=== PATIENT | female | born 1935 | race Caucasian/White ===

== ENCOUNTER 2018-01-15 19:25 | Inpatient (IN) | payer OTHER ==
[~2018-01-15] VITALS: Ht 157.5 cm; Wt 101.5 kg
[~2018-01-15 19:25] MED LIST: "\\\"WATER PILL\\\"" PO; ACET325 PO; FOSI10 PO; FURO40 PO; GABA300 PO; HYDR1TAB94 PO; Keflex500 MG PO; LIDO2TG30 TOP; Mobic15 MG PO; Norco 5-325 Ta1 EACH PO; SULTRIDS PO; Synthroid100 MCG PO
[2018-01-15 20:29] LABS: BASOPHILS ABSOLUTE AUTO 0.06 K/mm3 (0.00-0.23); BASOPHILS PERCENT AUTO 0 % (0-2); EOSINOPHILS ABSOLUTE AUTO 0.09 K/mm3 (0.00-0.68); EOSINOPHILS PERCENT AUTO 1 % (0-6); Hematocrit 41.9 % (33.0-51.0); Hemoglobin 13.9 g/dL (11.5-16.0); IMMATURE GRAN ABSOLUTE AUTO 0.08 K/mm3 (0.00-0.10); IMMATURE GRAN PERCENT AUTO 1 % (0-1); LYMPHOCYTES ABSOLUTE AUTO 1.02 K/mm3 (0.84-5.20); LYMPHOCYTES PERCENT AUTO 6 % (21-46); MONOCYTES PERCENT AUTO 6 % (4-13); Mean Corpuscular HGB 31.1 pg (26.0-34.0); Mean Corpuscular HGB Conc 33.2 g/dL (31.5-36.5); Mean Corpuscular Volume 94 fL (80-100); Mean Platelet Volume 10.6 fL (9.1-12.4); NEUTROPHILS ABSOLUTE AUTO 13.85 K/mm3 (1.96-9.15); NEUTROPHILS PERCENT AUTO 86 % (41-73); Platelet Count 283 K/mm3 (150-400); RDW Coefficient Variation 12.7 % (11.7-14.2); RDW Standard Deviation 43.8 fL (35.1-46.3); Red Blood Cell Count 4.47 M/mm3 (3.80-5.20)
[2018-01-15 20:45] LABS: Albumin, Blood 3.5 g/dL (3.4-5.0); Albumin/Globulin Ratio 0.9 (0.8-1.8); Bilirubin, Total 0.4 mg/dL (0.1-1.0); Bun/Creatinine Ratio 18.2 (12.0-20.0); Calcium, Blood 9.2 mg/dL (8.5-10.1); Creatinine, Blood 1.81 mg/dL (0.40-1.00); Potassium, Blood 3.6 mmol/L (3.5-5.5); Total Protein, Blood 7.5 g/dL (6.4-8.2)
[2018-01-17 04:57] LABS: BASOPHILS ABSOLUTE AUTO 0.04 K/mm3 (0.00-0.23); BASOPHILS PERCENT AUTO 1 % (0-2); EOSINOPHILS ABSOLUTE AUTO 0.44 K/mm3 (0.00-0.68); EOSINOPHILS PERCENT AUTO 5 % (0-6); Hematocrit 35.4 % (33.0-51.0); Hemoglobin 11.5 g/dL (11.5-16.0); IMMATURE GRAN ABSOLUTE AUTO 0.04 K/mm3 (0.00-0.10); IMMATURE GRAN PERCENT AUTO 1 % (0-1); LYMPHOCYTES ABSOLUTE AUTO 0.88 K/mm3 (0.84-5.20); LYMPHOCYTES PERCENT AUTO 11 % (21-46); MONOCYTES ABSOLUTE AUTO 0.89 K/mm3 (0.16-1.47); MONOCYTES PERCENT AUTO 11 % (4-13); Mean Corpuscular HGB 31.1 pg (26.0-34.0); Mean Corpuscular HGB Conc 32.5 g/dL (31.5-36.5); Mean Corpuscular Volume 96 fL (80-100); Mean Platelet Volume 10.8 fL (9.1-12.4); NEUTROPHILS ABSOLUTE AUTO 5.89 K/mm3 (1.96-9.15); NEUTROPHILS PERCENT AUTO 72 % (41-73); Platelet Count 227 K/mm3 (150-400); RDW Standard Deviation 45.4 fL (35.1-46.3); White Blood Cell Count 8.18 K/mm3 (4.00-11.30)
[2018-01-17 05:18] LABS: Anion Gap 9 mmol/L (6-16); Blood Urea Nitrogen 26 mg/dL (8-24); CO2, Blood 23 mmol/L (21-32); Calcium, Blood 8.1 mg/dL (8.5-10.1); Chloride, Blood 112 mmol/L (98-108); Creatinine, Blood 1.53 mg/dL (0.40-1.00); Glomerular Filtration Rate 35 (60-); Glucose, Blood 108 mg/dL (70-99); Potassium, Blood 3.9 mmol/L (3.5-5.5); Sodium, Blood 144 mmol/L (136-145); Vancomycin, Random 22.5 ug/mL
[2018-01-17 13:39] LABS: Vancomycin, Random 17.9 ug/mL
[2018-01-18 05:03] LABS: BASOPHILS ABSOLUTE AUTO 0.04 K/mm3 (0.00-0.23); BASOPHILS PERCENT AUTO 1 % (0-2); EOSINOPHILS ABSOLUTE AUTO 0.43 K/mm3 (0.00-0.68); EOSINOPHILS PERCENT AUTO 5 % (0-6); Hematocrit 37.7 % (33.0-51.0); Hemoglobin 12.4 g/dL (11.5-16.0); IMMATURE GRAN ABSOLUTE AUTO 0.04 K/mm3 (0.00-0.10); IMMATURE GRAN PERCENT AUTO 1 % (0-1); LYMPHOCYTES ABSOLUTE AUTO 0.88 K/mm3 (0.84-5.20); LYMPHOCYTES PERCENT AUTO 11 % (21-46); MONOCYTES ABSOLUTE AUTO 0.73 K/mm3 (0.16-1.47); MONOCYTES PERCENT AUTO 9 % (4-13); Mean Corpuscular HGB 31.1 pg (26.0-34.0); Mean Corpuscular HGB Conc 32.9 g/dL (31.5-36.5); Mean Corpuscular Volume 95 fL (80-100); Mean Platelet Volume 10.8 fL (9.1-12.4); NEUTROPHILS ABSOLUTE AUTO 6.21 K/mm3 (1.96-9.15); NEUTROPHILS PERCENT AUTO 74 % (41-73); Platelet Count 268 K/mm3 (150-400); RDW Coefficient Variation 12.6 % (11.7-14.2); RDW Standard Deviation 43.8 fL (35.1-46.3); Red Blood Cell Count 3.99 M/mm3 (3.80-5.20); White Blood Cell Count 8.33 K/mm3 (4.00-11.30)
[2018-01-18 05:28] LABS: Albumin, Blood 2.7 g/dL (3.4-5.0); Anion Gap 8 mmol/L (6-16); Blood Urea Nitrogen 21 mg/dL (8-24); Bun/Creatinine Ratio 14.7 (12.0-20.0); CO2, Blood 27 mmol/L (21-32); Calcium, Blood 8.6 mg/dL (8.5-10.1); Chloride, Blood 108 mmol/L (98-108); Creatinine, Blood 1.43 mg/dL (0.40-1.00); Glomerular Filtration Rate 38 (60-); Glucose, Blood 111 mg/dL (70-99); Potassium, Blood 4.1 mmol/L (3.5-5.5); Sodium, Blood 143 mmol/L (136-145); Uric Acid, Blood 6.9 mg/dL (2.6-6.0); Vancomycin, Random 20.5 ug/mL
[2018-01-19 06:28] LABS: Anion Gap 9 mmol/L (6-16); Blood Urea Nitrogen 14 mg/dL (8-24); Bun/Creatinine Ratio 10.6 (12.0-20.0); CO2, Blood 28 mmol/L (21-32); Calcium, Blood 8.9 mg/dL (8.5-10.1); Chloride, Blood 103 mmol/L (98-108); Creatinine, Blood 1.32 mg/dL (0.40-1.00); Glomerular Filtration Rate 41 (60-); Glucose, Blood 109 mg/dL (70-99); Phosphorus, Blood 2.6 mg/dL (2.5-4.9); Potassium, Blood 3.5 mmol/L (3.5-5.5); Sodium, Blood 140 mmol/L (136-145)
[2018-01-19] MEDS ORDERED: AMLO10 PO (09:28)
[2018-01-19] MEDS ORDERED: SPIR25 PO (09:28)
[2018-01-19] MEDS ORDERED: Augmentin 875-1 EACH PO (09:28)
== END 2018-01-19 10:42 | disposition home or self-care (01) | DRG 872 ==
LOC: ER 19:25 → PCU 19:26 → EDBEDREQ 23:05 → PCU 23:24 → MEDS 01-16 15:27
PROVIDERS: Emergency Medicine; Family Medicine; Pharmacist
DX: A41.50 Gram-negative sepsis, unspecified (principal); A28.0 Pasteurellosis; L03.116 Cellulitis of left lower limb; N17.9 Acute kidney failure, unspecified; R65.20 Severe sepsis without septic shock; W55.03XA Scratched by cat, initial encounter; E03.9 Hypothyroidism, unspecified; I89.0 Lymphedema, not elsewhere classified; M16.0 Bilateral primary osteoarthritis of hip; M17.0 Bilateral primary osteoarthritis of knee; Z86.14 Personal history of Methicillin resistant Staphylococcus aureus infection; G62.9 Polyneuropathy, unspecified; E66.09 Other obesity due to excess calories; I80.02 Phlebitis and thrombophlebitis of superficial vessels of left lower extremity; I12.9 Hypertensive chronic kidney disease with stage 1 through stage 4 chronic kidney disease, or unspecified chronic kidney disease; N18.9 Chronic kidney disease, unspecified; Y92.9 Unspecified place or not applicable
CPT/HCPCS: 36415; 76770; 80048; 80053; 80069; 80202; 83605; 84550; 85025; 87040; 87070; 87075; 87077; 87205; 93005; 93010; 93971; 96361; 96374; 96375; 99285; G0378; J0360; J1650; J1940; J2543; J3370; J7030; J7042; J7050

== ENCOUNTER 2018-10-15 05:46 | Day surgery (SDC) | payer OTHER ==
[~2018-10-15] VITALS: Ht 152.4 cm; Wt 99.3 kg
[~2018-10-15 05:46] MED LIST changes: +AMLO10 PO; +Augmentin 875-1 EACH PO; +CLON.1 PO; +Flurbiprofen100 MG PO; +LEVSOD150 PO; +Probenecid-Col1 EACH PO; +SPIR25 PO
[2018-10-15] MEDS ORDERED: OXYC5 PO (07:06)
--- NOTE | 2018-10-15 07:59 | NUR ---
PT SURGERY CANCELLED DUE TO PRIMARILY HEALED CAT BITE TO R CALF AND SWELLING IN LEGS. PT STOPPED SPIROLATONE 2-3 DAYS AGO REPORTS DIFFICULTY GETTING TO BR. PT VERY PAINFUL GENERALLY. PATEINT TO FOLLOW UP WITH DR. RAMIREZ FOR CONTINUATION OF CARE AT LATER DATE. AWARE PT RECEIVED ORDERED OXICONTIN AND TYLENOL.
== END 2018-10-15 22:40 | disposition home or self-care (01) ==
LOC: ORSCMMR 05:46 → ORD 07:30 → ORSCMMR 22:40
DX: M17.11 Unilateral primary osteoarthritis, right knee (principal); Z53.9 Procedure and treatment not carried out, unspecified reason
CPT/HCPCS: 87081; J0171; J0330; J0690; J0735; J1885; J2250; J2795; J3010; J7120

== ENCOUNTER 2019-02-15 09:35 | Day surgery (SDC) | payer OTHER ==
[~2019-02-15] VITALS: Ht 157.5 cm; Wt 113.0 kg
[~2019-02-15 09:35] MED LIST changes: +OXYC5 PO
--- NOTE | 2019-02-15 10:40 | NUR ---
PT IN PAIN OF 10/10 CRIES WHEN SOCKS ARE APPLIED. Very sensitive to touch. Right knee in pain, pt has high anxiety. Blood pressure high medicated with home meds when pt arrived. Pt did not taked b/p meds today. Daughter Priya Marcelino care provider taking care of pt's spouse as well.
--- NOTE | 2019-02-15 11:19 | NUR ---
Pt medicated with rx for pain and anxiety. The patients pain came down to 5/10. Report given to Varun Garcia RN pt to construction or leak gang laborer.
--- NOTE | 2019-02-15 13:20 | NUR ---
PT TO RECOVERY POST PROCEDURE. PT IS DROWSY, ROUSABLE; ASKING QUESTIONS. PT REPORTS R KNEE DISCOMFORT, WHICH WAS PRESENT PRIOR TO PROCEDURE. MONITOR 90'S, B/P 147/70, SPO2 100 % 2L NC. R GROIN NO REDNESS/SWELLING AT SITE, DRSG C,D,I, BLE + 2 PULSES X 4.
--- NOTE | 2019-02-15 14:30 | NUR ---
ASSUMED CARE OF PT AT THIS TIME. NADN. VSS. PT SLEEPING, AROUSES WITH VERBAL STIMULI. L GROIN SITE REMAINS CLEAR. NO BLEEDING OR HEMATOMA NOTED.
[2019-02-15] MEDS ORDERED: CLOP75 PO (14:59)
--- NOTE | 2019-02-15 15:30 | NUR ---
PT ASSISTED UP WITH 2 PERSON ASSIST. PT ASSISTED WITH CHANGING CLOTHES. TOLERATES WELL. L GROIN SITE REMAINS CLEAR. NO BLEEDING OR HEMATOMA NOTED. PT ASSISTED INTO WC. SPOKE WITH ZENIA WOOD, SHE IS ON HER WAY.
--- NOTE | 2019-02-15 16:11 | NUR ---
PT SITTING IN WC, REPORTS HER R KNEE CONTINUES TO "THROB" VSS. L GROIN SITE IS STABLE. AWAITING PT DAUGHTER FOR DC.
--- NOTE | 2019-02-15 16:25 | NUR ---
PT AND DAUGHTER VERBALIZES UNDERSTANDING WRITTEN AND VERBAL ORDERS. PT DC TO HOME VIA WC WITH ASSISTANCE FROM STAFF TO CAR.
[2019-04-30] MEDS ORDERED: SPIR25 PO (09:15)
== END 2019-02-15 16:32 | disposition home or self-care (01) ==
LOC: MHTC 09:35
PROC: 047M3Z1 Dilation of Right Popliteal Artery using Drug-Coated Balloon, Percutaneous Approach (ICD-10-PCS; principal; 2019-02-15)
PROC: 047K3Z1 Dilation of Right Femoral Artery using Drug-Coated Balloon, Percutaneous Approach (ICD-10-PCS; principal; 2019-02-15)
DX: I70.203 Unspecified atherosclerosis of native arteries of extremities, bilateral legs (principal); Z79.899 Other long term (current) drug therapy
CPT/HCPCS: 37224; 75625; 75716; 75774; 99152; 99153; A9270-GY; C1725; C1760; C1769; C1887; C1894; C2623; J0360; J1644; J2060; J2250; J3010; J7030; Q9967

== ENCOUNTER 2019-03-23 22:11 | Emergency (ER) | payer OTHER ==
[~2019-03-23] VITALS: Ht 157.5 cm; Wt 90.7 kg
[~2019-03-23 22:11] MED LIST changes: +CLOP75 PO
[2019-03-24 00:21] LABS: BASOPHILS ABSOLUTE AUTO 0.05 K/mm3 (0.00-0.23); BASOPHILS PERCENT AUTO 1 % (0-2); EOSINOPHILS ABSOLUTE AUTO 0.17 K/mm3 (0.00-0.68); EOSINOPHILS PERCENT AUTO 2 % (0-6); Hematocrit 46.1 % (33.0-51.0); Hemoglobin 15.5 g/dL (11.5-16.0); IMMATURE GRAN ABSOLUTE AUTO 0.06 K/mm3 (0.00-0.10); IMMATURE GRAN PERCENT AUTO 1 % (0-1); LYMPHOCYTES ABSOLUTE AUTO 1.16 K/mm3 (0.84-5.20); LYMPHOCYTES PERCENT AUTO 12 % (21-46); MONOCYTES PERCENT AUTO 13 % (4-13); Mean Corpuscular HGB 32.6 pg (26.0-34.0); Mean Corpuscular HGB Conc 33.6 g/dL (31.5-36.5); Mean Corpuscular Volume 97 fL (80-100); NEUTROPHILS ABSOLUTE AUTO 6.94 K/mm3 (1.96-9.15); NEUTROPHILS PERCENT AUTO 72 % (41-73); Platelet Count 284 K/mm3 (150-400); RDW Coefficient Variation 12.8 % (11.7-14.2); RDW Standard Deviation 46.1 fL (35.1-46.3); Red Blood Cell Count 4.76 M/mm3 (3.80-5.20); White Blood Cell Count 9.68 K/mm3 (4.00-11.30)
[2019-03-24 00:44] LABS: Alanine Aminotransfer (ALT/SGP 19 U/L (12-78); Albumin, Blood 3.2 g/dL (3.4-5.0); Albumin/Globulin Ratio 0.7 (0.8-1.8); Alk Phos 103 U/L (50-136); Anion Gap 8 mmol/L (6-16); Aspartate Aminotrans (AST/SGOT 21 U/L (12-37); Bilirubin, Total 1.1 mg/dL (0.1-1.0); Blood Urea Nitrogen 17 mg/dL (8-24); Bun/Creatinine Ratio 18.3 (12.0-20.0); CO2, Blood 25 mmol/L (21-32); Calcium, Blood 9.5 mg/dL (8.5-10.1); Chloride, Blood 102 mmol/L (98-108); Creatinine, Blood 0.93 mg/dL (0.40-1.00); Globulin, Blood 4.4 g/dL (2.2-4.0); Glomerular Filtration Rate >60 (60-); Glucose, Blood 90 mg/dL (70-99); Magnesium, Blood 2.3 mg/dL (1.6-2.4); Potassium, Blood 4.6 mmol/L (3.5-5.5); Sodium, Blood 135 mmol/L (136-145); Total Protein, Blood 7.6 g/dL (6.4-8.2); Troponin I <0.015 ng/mL (0.000-0.040)
[2019-04-30] MEDS ORDERED: SPIR25 PO (09:15)
== END 2019-03-24 04:02 | disposition home or self-care (01) ==
LOC: ER 22:11
PROVIDERS: Emergency Medicine
DX: R60.0 Localized edema (principal); R06.00 Dyspnea, unspecified; R11.2 Nausea with vomiting, unspecified; E03.9 Hypothyroidism, unspecified; I10 Essential (primary) hypertension; Z79.02 Long term (current) use of antithrombotics/antiplatelets; Z79.899 Other long term (current) drug therapy
CPT/HCPCS: 36415; 71045; 80053; 83735; 83880; 84145; 84484; 85025; 93005; 93010; 96374; 96375; 99284-25; A9270-GY; J1170; J2405

== ENCOUNTER 2019-05-13 10:07 | Inpatient (IN) | payer OTHER ==
[~2019-05-13] VITALS: Ht 160 cm; Wt 99.5 kg
--- NOTE | 2019-05-13 10:38 | NUR ---
INTO SDS VIA WHEEL CHAIR PATIENT UNABLE TO STAND ON SCALE FOR WEIGHT DUE TO PAIN. ASSISTED CHANGING AND GETTING ON BED WITH 2 STAFF PATIENT HURTING DURING PROCEDURE STATES ALOT OF PAIN ALL IN KNEE.
--- NOTE | 2019-05-13 14:19 | NUR ---
PT GONE TO CXR. CUSTOMER SUPPORT MANAGER SAYS THE ARE WORKING ON ADMITTING THE PATIENT.
--- NOTE | 2019-05-13 15:46 | NUR ---
PT TRANSFERED OUT TO SURGICAL FLOOR POST OP. ORIENTED TO SELF ONLY. PAIN APPEARS WELL CONTROLLED AGITATION DECREASED. INTERMITENT PERIODS OF CALLING OUT DECREASED FROM ARRIVAL TO PACU.
--- NOTE | 2019-05-13 16:04 | NUR ---
ARRIVAL ON UNIT PT ARRIVED ON UNIT VIA BED. PATIENT IS LAYING IN BED MOANING AND CALLING OUT. SAYS SHE IS SCARED. PATIENT IS ALERT TO SELF ONLY. REPEATEDLY ASKING WHERE SHE IS AT AND FOR A OSWALDO. LIGHTS ARE DIMMED AND DAUGHTER IS AT BEDSIDE. CAP REFILL GOOD IN SURGICAL LIMB BASELINE EDEMA NOTICED BILATERALLY. PULSES PRESENT IN BOTH EXTREMETIES. BED ALARM IS IN PLACE, CALL LIGHT IN REACH. CONTINUING TO MONITOR PATIENTS CONFUSION.
--- NOTE | 2019-05-13 16:33 | NUR ---
PT NOW ALERT TO PLACE AND SITUATION. ABLE TO STATE WHERE SHE IS AND WHY SHE IS HERE. NOT MOANING AND CRYING OUT MUCH. ANSWERING QUESTIONS APPROPRIATLY. ABLE TO SWALLOW TYLENOL FOR PAIN.
--- NOTE | 2019-05-13 16:42 | NUR ---
PT HAS BEEN CONFUSED SINCE ARRIVAL TO THE UNIT. SHE REQUIRES FREQUENT REORIENTATION AND IS QUITE FORGETFUL. HER DAUGHTER IS AT THE BEDSIDE AND REPORTS SHE IS FORGETFUL AT TIMES BUT DENIES CONFUSION AT HOME. PT DENIES PAIN BUT REPORTS FEELING ANXIOUS WHEN ASKED. ZOFRAN GIVEN FOR NAUSEA. PT IS TOLERATING ICE CHIPS. WILL CONTINUE TO MONITOR.
--- NOTE | 2019-05-13 17:49 | NUR ---
CONSULT SPOKE TO DR. RAMIREZ ABOUT PTS HYPERTENSION. ORDERS FOR MEDICAL CONSULT ENTERED. SPOKE TO HAYDEE SAN FOR CONSULT.
--- NOTE | 2019-05-13 18:09 | NUR ---
SHIFT SUMMARY PT S/P RIGHT TOTAL KNEE PATIENT ALERT AND ORIENTED X3 PLACE, PERSON, SITUATION, CANNOT RECALL TIME. PATIENT HAS BEEN MOANING WHILE SITTING IN BED ASKING WHERE SHE IS AND HOW SHE GOT HERE. ABLE TO ANSWER QUESTIONS APPROPRIATLY AND FOLLOW DIRECTIONS. MEDICATED FOR PAIN PER EMAR. CURRENTLY REPORTING A 7/10 MEDICATED WITH TORODOL. ABLE TO WIGGLE TOES. TOLERATING PO FOOD. MEDICATED FOR NAUSEA ONCE. VASQUEZ CATHETER STILL IN PLACE PATENT AND DRAINING.
--- NOTE | 2019-05-14 05:53 | NUR ---
SUMMARY: POD [address] RAMIREZ. VSS, HTN APPEARS RESOLVED, AFEBRILE, ROOM AIR. PT TOLERATING REG DIET AND PASSING MINIMAL GAS. PT APPEARS PLEASANTLY CONFUSED AT TIMES BUT REMAINSA&O X3-4 THIS SHIFT. PAIN WELL CONTROLLED WITH SCHEDULED TYLENOL AND TORDAL WITH 5MG ROXICODONE X2 THIS SHIFT. VASQUEZ CATHETER DC'D THIS MORNING. ANTICIPATE PT/OT, AWAIT PT VOID.
[2019-05-14 06:16] LABS: BASOPHILS ABSOLUTE AUTO 0.02 K/mm3 (0.00-0.23); BASOPHILS PERCENT AUTO 0 % (0-2); Bun/Creatinine Ratio 19.6 (12.0-20.0); Calcium, Blood 8.7 mg/dL (8.5-10.1); Creatinine, Blood 1.02 mg/dL (0.40-1.00); EOSINOPHILS PERCENT AUTO 0 % (0-6); Hematocrit 39.8 % (33.0-51.0); Hemoglobin 13.1 g/dL (11.5-16.0); IMMATURE GRAN ABSOLUTE AUTO 0.06 K/mm3 (0.00-0.10); IMMATURE GRAN PERCENT AUTO 0 % (0-1); LYMPHOCYTES ABSOLUTE AUTO 0.65 K/mm3 (0.84-5.20); LYMPHOCYTES PERCENT AUTO 4 % (21-46); MONOCYTES ABSOLUTE AUTO 0.87 K/mm3 (0.16-1.47); MONOCYTES PERCENT AUTO 5 % (4-13); Mean Corpuscular HGB Conc 32.9 g/dL (31.5-36.5); Mean Corpuscular Volume 94 fL (80-100); Mean Platelet Volume 11.7 fL (9.1-12.4); NEUTROPHILS ABSOLUTE AUTO 15.17 K/mm3 (1.96-9.15); NEUTROPHILS PERCENT AUTO 90 % (41-73); Platelet Count 242 K/mm3 (150-400); RDW Coefficient Variation 12.7 % (11.7-14.2); RDW Standard Deviation 43.8 fL (35.1-46.3); Red Blood Cell Count 4.22 M/mm3 (3.80-5.20); White Blood Cell Count 16.77 K/mm3 (4.00-11.30)
--- NOTE | 2019-05-14 10:22 | NUR ---
PT VERY ANXIOUS WITH MOVEMENT. DENIES MUCH PAIN UPON MOVING AND STATES THAT IT IS MOSTLY FEAR. SEEMS TO BE ANXIOUS WITH MOVEMENT. DIFFICULTY FOLLOWING INSTRUCTIONS WHILE MOVING R/T ANXIETY.
--- NOTE | 2019-05-14 16:09 | NUR ---
PT REPORTS SHE HAS NOT VOIDED SINCE HER CATHETER WAS REMOVED. BLADDER SCAN SHOWS 147ML IN HER BLADDER. DR. LAFLEUR NOTIFIED, WILL PUSH FLUIDS AND CONTINUE WITH DISCHARGE TO [facility]. WILL NOTIFY NURSE DURING REPORT THAT PT HAS NOT VOIDED SINCE VASQUEZ WAS REMOVED THIS AM. WILL CONTINUE TO MONITOR.
--- NOTE | 2019-05-14 16:25 | NUR ---
REPORT GIVEN TO RN AT [facility]. AWAITING TRANSPORT TO DIRECTOR OF QUALITY PATIENT. PATIENT CURRENTLY SITTING IN CHAIR. BELONGINGS PACKED UP.
--- NOTE | 2019-05-14 16:43 | NUR ---
DISCHARGE PT LEFT TO [facility]IA [facility]. SCRIPTS AND EXTRA BANDAGES SENT WITH TRANSPORT. BELONGINGS WITH PATIENT. PATIENT DENIES PAIN PRIOR TO DISCHARGE. CONFUSED ON WHERE SHE WAS GOING EVEN AFTER TELLING HER.
== END 2019-05-14 16:45 | DRG 470 ==
LOC: ORSCMMR 10:07 → ORD 11:30 → ORSCMMR 11:30 → SURS 15:31 → ORSCMMR 05-14 14:28 → SURS 05-14 16:45 → ORD 05-27 07:30
PROVIDERS: ADMIT Orthopaedic Surgery
PROC: 0SRC0J9 Replacement of Right Knee Joint with Synthetic Substitute, Cemented, Open Approach (ICD-10-PCS; principal; 2019-05-13 11:30)
DX: M17.11 Unilateral primary osteoarthritis, right knee (principal); E66.01 Morbid (severe) obesity due to excess calories; E03.9 Hypothyroidism, unspecified; N18.3 Chronic kidney disease, stage 3 (moderate); I12.9 Hypertensive chronic kidney disease with stage 1 through stage 4 chronic kidney disease, or unspecified chronic kidney disease; E78.5 Hyperlipidemia, unspecified; F41.9 Anxiety disorder, unspecified; Z68.38 Body mass index [BMI] 38.0-38.9, adult; Z86.14 Personal history of Methicillin resistant Staphylococcus aureus infection; Z79.02 Long term (current) use of antithrombotics/antiplatelets; Z79.899 Other long term (current) drug therapy
CPT/HCPCS: 36415; 73560-RT; 80048; 83735; 85025; 88300; 97110; 97116; 97162; 97530; C1713; C1776; J0171; J0360; J0690; J0735; J1100; J1885; J2060; J2250; J2405; J2704; J2795; J3010; J7120

== ENCOUNTER → 2019-07-05 | Outpatient (CLI) | payer OTHER ==
[2019-07-05 14:11] LABS: Bilirubin, Urine Neg (Neg); Blood, Urine 1+ (Neg); Glucose Qualitative, Urine Neg (Neg); Ketones, Urine Neg (Neg); Leukocyte Esterase, Urine 1+ (Neg); Nitrite, Urine Pos (Neg); Protein, Urine 1+ (Neg); Urobilinogen, Urine NORM (Normal)
[2019-07-05 14:27] LABS: Appearance, Urine Hazy (Clear); Color, Urine Yellow (P-Yellow)
[2019-07-05 14:28] LABS: Bacteria Many /hpf; Mucus Light (0-Heavy); Red Blood Cells, Urine 0-2 /hpf (0-2); Squamous Epithelial Cells Mod /hpf (Few)
== END | disposition home or self-care (01) ==
LOC: LAB SHORT 11:58 → OLS 11:58
PROVIDERS: Family Medicine
DX: N39.0 Urinary tract infection, site not specified (principal)
CPT/HCPCS: 81001; 87077; 87086; 87186

== ENCOUNTER 2020-04-02 20:56 | Inpatient (IN) | payer OTHER ==
[~2020-04-02] VITALS: Ht 160 cm; Wt 106.0 kg
[2020-04-02 21:55] LABS: BASOPHILS ABSOLUTE AUTO 0.08 K/mm3 (0.00-0.23); BASOPHILS PERCENT AUTO 1 % (0-2); EOSINOPHILS ABSOLUTE AUTO 0.34 K/mm3 (0.00-0.68); EOSINOPHILS PERCENT AUTO 2 % (0-6); Hematocrit 50.7 % (33.0-51.0); Hemoglobin 15.9 g/dL (11.5-16.0); IMMATURE GRAN ABSOLUTE AUTO 0.17 K/mm3 (0.00-0.10); IMMATURE GRAN PERCENT AUTO 1 % (0-1); LYMPHOCYTES ABSOLUTE AUTO 1.22 K/mm3 (0.84-5.20); LYMPHOCYTES PERCENT AUTO 8 % (21-46); MONOCYTES ABSOLUTE AUTO 0.94 K/mm3 (0.16-1.47); MONOCYTES PERCENT AUTO 6 % (4-13); Mean Corpuscular HGB 28.9 pg (26.0-34.0); Mean Corpuscular HGB Conc 31.4 g/dL (31.5-36.5); Mean Corpuscular Volume 92 fL (80-100); Mean Platelet Volume 10.6 fL (9.1-12.4); NEUTROPHILS ABSOLUTE AUTO 13.31 K/mm3 (1.96-9.15); NEUTROPHILS PERCENT AUTO 83 % (41-73); Platelet Count 276 K/mm3 (150-400); RDW Coefficient Variation 12.6 % (11.7-14.2); RDW Standard Deviation 42.9 fL (35.1-46.3); White Blood Cell Count 16.06 K/mm3 (4.00-11.30)
[2020-04-02 22:12] LABS: Albumin, Blood 3.5 g/dL (3.4-5.0); Albumin/Globulin Ratio 0.9 (0.8-1.8); Bilirubin, Total 0.4 mg/dL (0.1-1.0); Bun/Creatinine Ratio 22.1 (12.0-20.0); Calcium, Blood 8.6 mg/dL (8.5-10.1); Creatinine, Blood 1.36 mg/dL (0.40-1.00); Globulin, Blood 3.7 g/dL (2.2-4.0); Potassium, Blood 3.9 mmol/L (3.5-5.5); Total Protein, Blood 7.2 g/dL (6.4-8.2)
[2020-04-02] MEDS ORDERED: EFFEXOR XR37.5 MG PO (23:36)
[2020-04-03 00:17] LABS: Thyroid Stimulating Hormone 1.16 uIU/mL (0.360-4.800)
--- NOTE | 2020-04-03 05:16 | NUR ---
SHIFT SUMMARY NEW ADMIT THIS AM. CONFUSED/COOPERATIVE AT TIMES. NPO. RLE SHORTENED + EXTERNALLY ROTATED. PPP, DENIES N/T BLE, MOVES TOES WELL. DISCOMFORT DECREASED WITH 1 NORCO Q6H + X1 25mcg FENTANYL WITH MINIMAL AFFECT, NEW ORDERS FOR DILAUDID OBTAINED FOR FURTHER SEVERE PAIN CONTROL. PT INCONTINENT IN ATTENDS AT TIMES, REFUSING VASQUEZ PLACEMENT. PT VERY RELUCTANT + PAINFUL TO UTILIZE BED PATTERSON, WILL CONTINUE TO ENCOURAGE + EDUCATE. PT CURRENTLY RESTING IN BED WITH CALL LIGHT IN REACH.
[2020-04-03 07:12] LABS: BASOPHILS ABSOLUTE AUTO 0.04 K/mm3 (0.00-0.23); BASOPHILS PERCENT AUTO 0 % (0-2); EOSINOPHILS PERCENT AUTO 0 % (0-6); Hematocrit 52.9 % (33.0-51.0); Hemoglobin 16.3 g/dL (11.5-16.0); IMMATURE GRAN ABSOLUTE AUTO 0.08 K/mm3 (0.00-0.10); IMMATURE GRAN PERCENT AUTO 1 % (0-1); LYMPHOCYTES PERCENT AUTO 3 % (21-46); MONOCYTES ABSOLUTE AUTO 0.63 K/mm3 (0.16-1.47); MONOCYTES PERCENT AUTO 4 % (4-13); Mean Corpuscular HGB 29.2 pg (26.0-34.0); Mean Corpuscular HGB Conc 30.8 g/dL (31.5-36.5); Mean Corpuscular Volume 95 fL (80-100); Mean Platelet Volume 10.7 fL (9.1-12.4); NEUTROPHILS ABSOLUTE AUTO 14.42 K/mm3 (1.96-9.15); NEUTROPHILS PERCENT AUTO 92 % (41-73); Platelet Count 287 K/mm3 (150-400); RDW Coefficient Variation 12.8 % (11.7-14.2); RDW Standard Deviation 45.1 fL (35.1-46.3); Red Blood Cell Count 5.58 M/mm3 (3.80-5.20); White Blood Cell Count 15.67 K/mm3 (4.00-11.30)
[2020-04-03 07:28] LABS: Bun/Creatinine Ratio 22.5 (12.0-20.0); Calcium, Blood 8.3 mg/dL (8.5-10.1); Creatinine, Blood 1.2 mg/dL (0.40-1.00); Potassium, Blood 5.2 mmol/L (3.5-5.5)
[2020-04-03 13:26] LABS: Magnesium, Blood 2.4 mg/dL (1.6-2.4); Phosphorus, Blood 3.6 mg/dL (2.5-4.9)
--- NOTE | 2020-04-03 17:45 | NUR ---
SHIFT SUMMARY PATIENT TREATED FOR HR > 120 T/O SHIFT; DR DONAHUE CONTACTED SEVERAL TIMES RE SUCH AND ALSO FOR ONGOING C/O NAUSEA. NEW IV ACCESS REQUIRED THIS AFTERNOON; 18 GA PLACED WITH LENA MUNROE BY PCU ALTO SINGER. PATIENT NOW RESTING QUIETLY AFTER PHENERGAN IV AND DILAUDID ADMINISTERED. IVF INFUSING PER NEW ORDER. PATIENT UNABLE TO VOID TO BEDPAN R/T PAIN, ATTENDS IN PLACE. (PATIENT REFUSING FC PLACEMENT.) DAUGHTER IN TO SEE TODAY. PLAN FOR OC TO OR TOMORROW WITH DR RAMIREZ. CONT TO MONITOR.
--- NOTE | 2020-04-03 20:35 | NUR ---
DR RAMIREZ AT BEDSIDE.NOTING VS WITH INITIAL ASSESSMENT OF THIS PT, I NOTE IV SITE INFILTRATED.DC'D WITH CATH INTACT.NAIL BEDS DUSKY.HANDS COLD.RADIAL PULSES PRESENT BILAT.PT DENIES CP OR SOB. PER TELE HEART RATE HAS BEEN SUSTAINING 130-142 WITH LOWEST AT 1230 PM @112.WARM PACK TO IV INFILTRATE SITE.WARM BLANKETS ON PT AND TO PT HANDS.
--- NOTE | 2020-04-03 23:46 | NUR ---
NEW ORDER OBTAINED FOR CARDIAC MED IV. Boris DONAHUE MINERAL MIXER ICU AT BEDSIDE ATTEMPINT TO OBTAIN IV USING SITE RITE PT HAS NO IV ACCESS.
[2020-04-04 03:02] LABS: Source, Urine Catheter
--- NOTE | 2020-04-04 03:02 | NUR ---
PT ALLOWED VASQUEZ PLACED DUE TO PAIN WITH REPOSITIONING FOR ATTEND CHANGE. U/A SENT. TELE MONITOR GER NANCE NOTED HEART RATE 90-110 WITH DILTIAZEM DOSE.
[2020-04-04 03:17] LABS: Appearance, Urine Hazy (Clear); Bilirubin, Urine Neg (Neg); Blood, Urine 1+ (Neg); Color, Urine Yellow (P-Yellow); Glucose Qualitative, Urine Neg (Neg); Ketones, Urine 1+ (Neg); Leukocyte Esterase, Urine 2+ (Neg); Nitrite, Urine Neg (Neg); Protein, Urine 2+ (Neg); Specific Gravity, Urine 1.025 (1.003-1.022); Urobilinogen, Urine NORM (Normal)
[2020-04-04 03:18] LABS: Bacteria Few /hpf; Red Blood Cells, Urine 0-2 /hpf (0-2); Squamous Epithelial Cells Rare /hpf (Few); White Blood Cells, Urine TNTC /hpf (0-5)
--- NOTE | 2020-04-04 04:10 | NUR ---
I CALLED [facility] TO CHECK ON CURRENT HEART RATE AND WAS REPORTED PT RATE BACK UP TO 145.CALL OUT TO DR PORTER.
[2020-04-04 04:43] LABS: BASOPHILS ABSOLUTE AUTO 0.06 K/mm3 (0.00-0.23); BASOPHILS PERCENT AUTO 0 % (0-2); EOSINOPHILS ABSOLUTE AUTO 0.01 K/mm3 (0.00-0.68); EOSINOPHILS PERCENT AUTO 0 % (0-6); Hematocrit 50.4 % (33.0-51.0); Hemoglobin 15.9 g/dL (11.5-16.0); IMMATURE GRAN ABSOLUTE AUTO 0.11 K/mm3 (0.00-0.10); IMMATURE GRAN PERCENT AUTO 1 % (0-1); LYMPHOCYTES ABSOLUTE AUTO 0.84 K/mm3 (0.84-5.20); LYMPHOCYTES PERCENT AUTO 5 % (21-46); MONOCYTES ABSOLUTE AUTO 1.17 K/mm3 (0.16-1.47); MONOCYTES PERCENT AUTO 7 % (4-13); Mean Corpuscular HGB 29.2 pg (26.0-34.0); Mean Corpuscular HGB Conc 31.5 g/dL (31.5-36.5); Mean Corpuscular Volume 93 fL (80-100); Mean Platelet Volume 10.9 fL (9.1-12.4); NEUTROPHILS ABSOLUTE AUTO 13.52 K/mm3 (1.96-9.15); NEUTROPHILS PERCENT AUTO 86 % (41-73); Platelet Count 320 K/mm3 (150-400); RDW Coefficient Variation 13.1 % (11.7-14.2); RDW Standard Deviation 44.3 fL (35.1-46.3); Red Blood Cell Count 5.44 M/mm3 (3.80-5.20); White Blood Cell Count 15.71 K/mm3 (4.00-11.30)
--- NOTE | 2020-04-04 04:51 | NUR ---
CXR COMPLETED. NO RETURN CALL PER DR PORTER YET.I SPOKE WITH ER STAFF AND HE IS CURRENTLY IN THE ER. THEY WILL ASK HIM TO CALL OUR UNIT.
[2020-04-04 05:02] LABS: Bun/Creatinine Ratio 20.4 (12.0-20.0); Calcium, Blood 8.6 mg/dL (8.5-10.1); Creatinine, Blood 1.67 mg/dL (0.40-1.00); Potassium, Blood 4.9 mmol/L (3.5-5.5)
--- NOTE | 2020-04-04 05:57 | NUR ---
SUMMARY HAVE NOT GOTTEN CXR REPORT BACK WITH CONFIRMATION OF CL, WILL START IV FLUIDS WHEN RECEIVED. POTASSIUM WAS PREVIOUSLY HIGHER END OF NORMAL,SO WHEN REPORT BACK, MAY ASK FOR CHANGE OF IV FLUIDS. PT CONTINUES CONFUSED. REPEATEDLY ASKS FOR FLUIDS PO AND IS ADVISED NPO FOR POSSIBLE O.R. TODAY. PT REFUSES OFFERS OF SWABS. MED WITH DILAUDED FOR PAIN AND GAVE ADDITIONAL DOSE OF DILTIAZEM PER ORDERS WITH RESULTING RATE 109.NOTED HIGH DIASTOLIC AGAIN. WILL CONT TO MONITOR.PT ON O2 WITH NO C/O SOB OR CP.
--- NOTE | 2020-04-04 11:20 | NUR ---
ELEVATED HR PT'S HR REMAINS >110 EVEN AFTER IV AND PO LOPRESSOR. HR RESPONDED TO IV LOPRESSOR AND DROPPED FROM [address] DONAHUE, DR. RAMIREZ AND DR. FERNÁNDEZ ARE AWARE. AT THIS TIME PT'S SURGERY HAS AGAIN BEEN DELAYED UNTIL TOMORROW. DR. DONAHUE IS INCREASING PO METOPROLOL TO EVERY 6 HOURS AND INCREASING DOSE TO 50 MG. PT DENIES CHEST PAIN OR SHORTNESS OF BREATH WITH ELEVATED HR. RHYTHM REMAINS AFIB AT THIS TIME. PT'S DAUGHTER HAS BEEN NOTIFIED OF DELAYED PROCEDURE. DR. DONAHUE DID NOT FEEL IT WOULD BE APPROPRIATE TO PLACE PT ON A DRIP TO MANAGE HER HR AT THIS TIME. WILL CONTINUE TO MONITOR.
--- NOTE | 2020-04-04 19:21 | NUR ---
SHIFT SUMMARY PT IS AWAITING SURGERY TO HAVE HER R HIP REPAIRED. SHE HAS BEEN UNABLE TO GO TO SURGERY R/T ELEVATED HR. SHE HAS BEEN STARTED ON PO CARDIZEM WHICH APPEARS TO BE MOST EFFECTIVE TO LOWER THE HR. PT NEEDS TO HAVE HR <100 BEFORE SHE CAN GO TO SURGERY. PT HAS BEEN PAINFUL EVEN WHEN PROVIDED PAIN MEDICATION AND YELLS OUT WITH REPOSITIONING. PT HAS ALLOWED STAFF TO DO MINIMAL REPOSITIONING DESPITE EDUCATION THAT SHE COULD DEVELOP A PRESSURE INJURY. REPORT GIVEN TO ALFA NANCE.
--- NOTE | 2020-04-04 23:49 | NUR ---
PT HAS BEEN REFUSING REPOSITIONING AND C/O SEVERE BUTTOCK PAIN TO THE POINT OF REQUIRING DILAUDID 0.5MG X 2 DOSES IN SHORT SUCCESSION AND NORCO 10 MG DOSE.CURRENTLY MONITORING PULSE OXIMETRY PER NIBP AND REMAINS 94-97% ON 2 L N/C.I ORDERED CONT PULSE OX PER PROTOCOL FOR HIGH RISK PAIN MANAGEMENT. DISCUSSED RISKS WITH PT AND REPOSITIONED PER 4 STAFF WITH MAX ASSIST AND PT ACTUALLY HINDERING UNINTENTIONALLY BY PUSHING AGAINST RAIL INSTEAD OF PULLING TOWARD RAIL. PT FEARFUL AND REASSURED.PT HAD DAMP WASH CLOTH UNDER BUTTOCK AND GIBBS WAS ALSO DAMP ALTHOUGH PT HAS VASQUEZ. APPEARED POSSIBLY A DRINK SPILLED IN BED.GIBBS WAS WRINKLED UNDER PT AND L BUTTOCK RED,SLIGHTLY FIRM WITH SKIN INTACT.REPLACED GIBBS WITH NEW AND REMOVED MOISTURE FROM SKIN. PLACED COCCYX MEPILEX AND 2 OTHER MEPILEX PROTECTIVE TO L BUTTOCK.AGAIN DISCUSSED RISKS WITH PT AND REPOSITIONED AFTER TO R SIDE.AFTER, PT REPORTING BUTTOCK PAIN IMPROVED.
--- NOTE | 2020-04-05 00:16 | NUR ---
PTS HEART RATE CONTINUES 110-120 EVEN AFTER SETTLING OF POSITION. CALL OUT TO DR BYRD.WAITING RETURN CALL.
--- NOTE | 2020-04-05 00:51 | NUR ---
SPOKE WITH DR PORTER AND RECEIVED ORDERS.
--- NOTE | 2020-04-05 03:22 | NUR ---
SUMMARY PT RECEIVED FIRST DOSE LANOXIN IV AND LOPRESSOR 25 MG PO WITH HEART RATE CONTINUING AT 110.NO OTHER CHANGES. DR PORTER NOTIFIED PT WITH DECRESED URINARY OUTPUT ,CKD BUT SATISF MAP.STILL PENDING POSSIBLE OR TODAY IF HEAR RATE MAINTAINS BELOW 100.
[2020-04-05 04:47] LABS: Bun/Creatinine Ratio 24.1 (12.0-20.0); Calcium, Blood 7.7 mg/dL (8.5-10.1); Creatinine, Blood 1.74 mg/dL (0.40-1.00); Potassium, Blood 4.7 mmol/L (3.5-5.5)
--- NOTE | 2020-04-05 05:46 | NUR ---
TRANSFER SPOKE WITH DR PORTER AND RECEIVED ORDER FOR TRANSFER TO PCU WITH JEREMY ELENA.DISCUSSED WITH PT REASON FOR TRANFER. CIRC CKS UNCHANGED. CONT COOL EXT R FEMORAL PULSE PALPATED.R PEDAL CONFIRMED PER DOPPLER TONIGHT WITH EDEMA DIFF TO ASSESS FULLY. PT WIGGLES TOES. DENIES CP OR SOB. CONT AFIB UNCONTROLLED RATE AND HTN.TRANSFERRED PER BED TO PCU 2 WITH REPORT GIVEN TO DEEDEE NANCE.
--- NOTE | 2020-04-05 06:19 | NUR ---
TRANSFER NOTE PATIENT TRANSFERED TO PCU 2 FROM SURGICAL FLOOR. PATIENT VERY ANXIOUS AND PARANOID UPON TRANSFER. WHILE STAFF WAS SETTELING PATIENT IN NEW ROOM SHE STATED, "WHY ARE THERE SO MANY PEOPLE HERE, AM I GOING TO ?" PATIENT PROVIDED WITH APPROPRIATE REASURANCE AND WAS ORIENTED TO THE NEW ROOM, UNIT, CALL LIGHT, AND PLAN OF CARE. IV CARDIZEM RUNNING PER EMAR. VITAL SIGNS CHARTED. PATIENT CURRENTLY RESTING IN BED WATCHING TV, CALL LIGHT IN REACH. WILL CONTINUE TO MONITOR PATIENT AND REPORT TO ONCOMING RN.
--- NOTE | 2020-04-05 06:25 | NUR ---
UPDATE CALLED DR PORTER TO VERIFY THAT THE IV DIGOXIN SHOULD STILL BE GIVEN. DR PORTER STATED TO GO AHEAD AND GIVE IT ORDERED.
--- NOTE | 2020-04-05 06:27 | NUR ---
PER PT REQUEST CALLED DAUGHTER ISRAEL AND ADVISED OF TRANSFER.
--- NOTE | 2020-04-05 17:59 | NUR ---
SHIFT SUMMARY PT A&Ox3 WITH INTERMITTIENT CONFUSION; ANXIOUS BUT COOPERATIVE WITH CARE. PT REPORTS PAIN TO RLE WITH MOVEMENT, MEDIATED PER EMAR. PT DENIES CHEST PAIN, SOB, NAUSEA AND DIZZINESS. CARDIZEM GTT OFF THIS AM; PO CARDIZEM; PER TELE HR AVERAGING 80'S. FEMUR XRAY COMPLETED DURING SHIFT. VSS. NO OTHER ACUTE CHANGES NOTED DUIRNG SHIFT.
[2020-04-06 03:40] LABS: BASOPHILS ABSOLUTE AUTO 0.06 K/mm3 (0.00-0.23); BASOPHILS PERCENT AUTO 1 % (0-2); EOSINOPHILS ABSOLUTE AUTO 0.44 K/mm3 (0.00-0.68); EOSINOPHILS PERCENT AUTO 4 % (0-6); Hematocrit 42.3 % (33.0-51.0); Hemoglobin 13.3 g/dL (11.5-16.0); IMMATURE GRAN ABSOLUTE AUTO 0.04 K/mm3 (0.00-0.10); IMMATURE GRAN PERCENT AUTO 0 % (0-1); LYMPHOCYTES ABSOLUTE AUTO 1.44 K/mm3 (0.84-5.20); LYMPHOCYTES PERCENT AUTO 13 % (21-46); MONOCYTES ABSOLUTE AUTO 0.97 K/mm3 (0.16-1.47); MONOCYTES PERCENT AUTO 8 % (4-13); Mean Corpuscular HGB 29.6 pg (26.0-34.0); Mean Corpuscular HGB Conc 31.4 g/dL (31.5-36.5); Mean Corpuscular Volume 94 fL (80-100); Mean Platelet Volume 11.1 fL (9.1-12.4); NEUTROPHILS ABSOLUTE AUTO 8.53 K/mm3 (1.96-9.15); NEUTROPHILS PERCENT AUTO 75 % (41-73); Platelet Count 230 K/mm3 (150-400); RDW Coefficient Variation 12.8 % (11.7-14.2); RDW Standard Deviation 44.1 fL (35.1-46.3); Red Blood Cell Count 4.49 M/mm3 (3.80-5.20); White Blood Cell Count 11.48 K/mm3 (4.00-11.30)
[2020-04-06 04:00] LABS: Bun/Creatinine Ratio 24.3 (12.0-20.0); Calcium, Blood 7.5 mg/dL (8.5-10.1); Creatinine, Blood 1.4 mg/dL (0.40-1.00); Potassium, Blood 4.4 mmol/L (3.5-5.5)
--- NOTE | 2020-04-06 06:28 | NUR ---
SHIFT SUMMARY PATIENT PLEASENT THROUGHOUT THE NIGHT. PATIENT FORGETFUL BUT EASIY REORIENTED. PATIENT REPORTS HER PAIN IS FINE UNLESS SHE IS MOVED IN ANY WAY OR COUGHS, PATIENT REFUSED MOST TURNS DUE TO IT BEING TOO PAINFUL. PATIENT APPEARED TO SLEEP WELL THROUGHOUT MOST OF THE NIGHT. VITAL SIGNS CHARTED. PATIENT CURRENTLY APPEARS TO BE SLEEPING. WILL CONTINUE TO MONITOR PATIENT AND REPORT TO ONCOMING RN.
--- NOTE | 2020-04-06 18:04 | NUR ---
SHIFT SUMMARY; A/A/OX3 DURING SHIFT. INTERMITANT CONFUSION DUE TO SLIGHT DEMENTIA. REFUSES REPOSITIONING. VASQUEZ CATH IN PLACE DRAINING CATHY CLEAR URINE. MEDICATED FOR PAIN NEEDED. BED BATH AND GOWN CHANGE TODAY, REFUSES LINEN CHANGE DUE TO NOT WANTING TO BE REPOSITIONED. UPDATED ON PLAN OF CARE FOR SURGERY TOMORROW. BILATERAL PEDAL PULSES FAINT DUE TO EDEMA BUT PALPABLE. CAP REFILL <3 BILATERALLY TO LOWER EXTREMETIES. BILATERAL FEET EQUALLY WARM. NPO AFTER MIDNIGHT TONIGHT. WILL CONTINUE TO MONITOR AND TREAT UNTIL CHANGE OF SIFT.
[2020-04-07 04:06] LABS: BASOPHILS ABSOLUTE AUTO 0.06 K/mm3 (0.00-0.23); BASOPHILS PERCENT AUTO 1 % (0-2); EOSINOPHILS ABSOLUTE AUTO 0.54 K/mm3 (0.00-0.68); EOSINOPHILS PERCENT AUTO 5 % (0-6); Hematocrit 42.4 % (33.0-51.0); IMMATURE GRAN ABSOLUTE AUTO 0.04 K/mm3 (0.00-0.10); IMMATURE GRAN PERCENT AUTO 0 % (0-1); LYMPHOCYTES ABSOLUTE AUTO 1.15 K/mm3 (0.84-5.20); LYMPHOCYTES PERCENT AUTO 11 % (21-46); MONOCYTES ABSOLUTE AUTO 0.81 K/mm3 (0.16-1.47); MONOCYTES PERCENT AUTO 8 % (4-13); Mean Corpuscular HGB 29.1 pg (26.0-34.0); Mean Corpuscular HGB Conc 30.7 g/dL (31.5-36.5); Mean Corpuscular Volume 95 fL (80-100); Mean Platelet Volume 10.6 fL (9.1-12.4); NEUTROPHILS ABSOLUTE AUTO 7.61 K/mm3 (1.96-9.15); NEUTROPHILS PERCENT AUTO 75 % (41-73); Platelet Count 214 K/mm3 (150-400); RDW Coefficient Variation 13.1 % (11.7-14.2); RDW Standard Deviation 45.3 fL (35.1-46.3); Red Blood Cell Count 4.47 M/mm3 (3.80-5.20); White Blood Cell Count 10.21 K/mm3 (4.00-11.30)
[2020-04-07 04:30] LABS: Calcium, Blood 7.8 mg/dL (8.5-10.1); Creatinine, Blood 1.26 mg/dL (0.40-1.00); Potassium, Blood 4.4 mmol/L (3.5-5.5)
--- NOTE | 2020-04-07 05:01 | NUR ---
END OF SHIFT SUMMARY NO ACUTE CHANGES THIS SHIFT. VSS. AFIB RATE REMAINS CONTROLLED IN 80'S TO 90'S. REMIANS ON RA. REFUSING REPOSITIONING AT THIS TIME. R LG REMAINS ELEVATED. CENTRAL LINE REMAINS PATENT AND SECURE. PT NPO SINCE MIDNIGHT FOR UPCOMING SURGERY IN AM. PT STOIC ABOUT PAIN AND GENERALLY STATES SHE DOESN'T REQUIRE ANY PAIN MEDICATINO. PT HAS ALLOWED SOME PAIN MEDICATION TO BE GIVEN AND SUBSEQUENTLY WAS ABLE TO REST POST ADMINISTRATION FOR A FEW HOURS. WILL CONTINUE TO MONITOR UNTIL SHIFT CHANGE.
--- NOTE | 2020-04-07 07:17 | NUR ---
ASSUMED PATIENT CARE. PATIENT SLEEPING COMFORTABLY IN BED, NO SIGNS OF ACUTE DISTRESS, WCTM.
--- NOTE | 2020-04-07 08:24 | NUR ---
"DAY SURGERY RN | TO OR BOTH DOCTORS HAVE SEEN PATIENT. REPORT TO PINA NANCE. TO OR. IJ FLUSHES WITHOUT DIFFICULTY. IN A-FIB ON 3 LEAD."
--- NOTE | 2020-04-07 18:14 | NUR ---
PATIENT WENT TO SURGERY TODAY FOR R. HIP FX. PATIENT LETHARGIC POST SURGERY, MONITORING CLOSELY FOR RESPIRATORY STATUS. PATIENT COMPLAINING OF 10/10 PAIN, RELIEF STATED BY PATIENT AFTER DILAUDID GIVEN. PATIENT RESPONDS VERBAL STIMULUS, PATIENT MAINTAINING O2 SATS HIGH 90S AND RR OF 16 OR GREATER. PATIENT HEART RATE IN A FIB MAINTAINED IN 120S TO 130 THIS SHIFT, WITH SPIKES UP TO 140/150. CARDIZEM DRIP RESTARTED, TITRATED TO 10 MG/HR. WCTM.
--- NOTE | 2020-04-07 19:30 | NUR ---
CARDIZEM DRIP PT HR REMAINED IN THE 130'S TO 140'S. TITRATED CARDIZEM DRIP TO 15 MG/HR. PT'S HR LOWERED TO LOW 100'S. BP STABLE.
[2020-04-08 04:43] LABS: BASOPHILS ABSOLUTE AUTO 0.07 K/mm3 (0.00-0.23); BASOPHILS PERCENT AUTO 1 % (0-2); EOSINOPHILS ABSOLUTE AUTO 0.13 K/mm3 (0.00-0.68); EOSINOPHILS PERCENT AUTO 1 % (0-6); Hematocrit 31.1 % (33.0-51.0); Hemoglobin 9.7 g/dL (11.5-16.0); IMMATURE GRAN ABSOLUTE AUTO 0.13 K/mm3 (0.00-0.10); IMMATURE GRAN PERCENT AUTO 1 % (0-1); LYMPHOCYTES ABSOLUTE AUTO 0.87 K/mm3 (0.84-5.20); LYMPHOCYTES PERCENT AUTO 6 % (21-46); MONOCYTES ABSOLUTE AUTO 1.28 K/mm3 (0.16-1.47); MONOCYTES PERCENT AUTO 9 % (4-13); Mean Corpuscular HGB 29.2 pg (26.0-34.0); Mean Corpuscular HGB Conc 31.2 g/dL (31.5-36.5); Mean Corpuscular Volume 94 fL (80-100); NEUTROPHILS PERCENT AUTO 82 % (41-73); Platelet Count 246 K/mm3 (150-400); RDW Standard Deviation 43.8 fL (35.1-46.3); Red Blood Cell Count 3.32 M/mm3 (3.80-5.20); White Blood Cell Count 14.08 K/mm3 (4.00-11.30)
[2020-04-08 05:00] LABS: Bun/Creatinine Ratio 20.7 (12.0-20.0); Calcium, Blood 7.7 mg/dL (8.5-10.1); Creatinine, Blood 1.21 mg/dL (0.40-1.00); Magnesium, Blood 2.2 mg/dL (1.6-2.4)
--- NOTE | 2020-04-08 06:22 | NUR ---
SHIFT SUMMARY PT IN SEVERE PAIN T/O SHIFT. PT RATES PAIN 10/10 OR UNABLE TO RATE PAIN DUE TO SEVERITY. REPOSITIONED TOLERATED. PAIN MEDICATION GIVEN PER EMAR. PT REPORTS PAIN RELIEF AFTER DILAUDID ADMINISTRATION. DIET ADVANCED TOLERATED. PT ABLE TO SWALLOW MEDICATIONS AND EAT SMALL AMOUNT OF CRACKERS. HR REMAINED IN LOW 100'S WITH CARDIZEM GTT AT 15 MG/HR. PT'S BP STABLE. PT REPORTS NO CP OR PRESSURE. VASQUEZ DRAINING TO GRAVITY, DARK CATHY URINE. WILL CONTINUE TO MONITOR UNTIL REPORT GIVEN TO HAYDEN NANCE.
--- NOTE | 2020-04-08 11:19 | NUR ---
CARDIZEM TITRATED TO 10MG FROM 15 MG AT THIS TIME
--- NOTE | 2020-04-08 11:53 | NUR ---
CARDIZEM TITRATED TO 5MG
--- NOTE | 2020-04-08 13:00 | NUR ---
cardizem drip stopped, AFib noted in 70s
--- NOTE | 2020-04-08 17:30 | NUR ---
SHIFT NOTE PT HAS BEEN ASLEEP FOR A GREAT DEAL OF THIS SHIFT, WHEN SHE AWAKENS STS THAT SHE IS IN A 10/10 PAIN OR "CAN'T FEEL MY LEGS" PT HAS NOT REQUIRED A GREAT DEAL OF PAIN MEDCIATION T/O THIS SHIFT, BUT WAS CONFUSED AFTER THE LAST DOSE OF NORCO, ADDITIONAL PAIN MEDICATION ADMNISTRATION SHOULD BE CAUTIOUSLY USED BY THE FOLLOWING SHIFT. PT HAD REFUSED TO BE TURNED Q2 HOURS, ALSO REFUSED HER LOVENOX SHOT, SHE DID EXPRESS UNDERSTANDING OF THE RISK OF NOT TAKING HER LOVENOX SHOT AND NOT BEING AMBULATORY. PEDAL PULSES ARE PRESENT X2, FAINT, WITH 3+ PEDAL EDEMA,
[2020-04-09 04:22] LABS: BASOPHILS ABSOLUTE AUTO 0.08 K/mm3 (0.00-0.23); BASOPHILS PERCENT AUTO 1 % (0-2); EOSINOPHILS ABSOLUTE AUTO 0.57 K/mm3 (0.00-0.68); EOSINOPHILS PERCENT AUTO 4 % (0-6); Hematocrit 28.4 % (33.0-51.0); Hemoglobin 8.9 g/dL (11.5-16.0); IMMATURE GRAN ABSOLUTE AUTO 0.21 K/mm3 (0.00-0.10); IMMATURE GRAN PERCENT AUTO 1 % (0-1); LYMPHOCYTES ABSOLUTE AUTO 1.12 K/mm3 (0.84-5.20); LYMPHOCYTES PERCENT AUTO 7 % (21-46); MONOCYTES ABSOLUTE AUTO 1.52 K/mm3 (0.16-1.47); MONOCYTES PERCENT AUTO 9 % (4-13); Mean Corpuscular HGB 29.7 pg (26.0-34.0); Mean Corpuscular HGB Conc 31.3 g/dL (31.5-36.5); Mean Corpuscular Volume 95 fL (80-100); NEUTROPHILS ABSOLUTE AUTO 12.64 K/mm3 (1.96-9.15); NEUTROPHILS PERCENT AUTO 78 % (41-73); NRBC ABSOLUTE 0.02 K/mm3 (0.00-0.02); NRBC Auto 0.1 /100 WBC (0.0-0.2); Platelet Count 262 K/mm3 (150-400); RDW Coefficient Variation 13.5 % (11.7-14.2); RDW Standard Deviation 45.6 fL (35.1-46.3); White Blood Cell Count 16.14 K/mm3 (4.00-11.30)
[2020-04-09 04:43] LABS: Bun/Creatinine Ratio 20.9 (12.0-20.0); Calcium, Blood 7.6 mg/dL (8.5-10.1); Creatinine, Blood 1.1 mg/dL (0.40-1.00)
--- NOTE | 2020-04-09 05:28 | NUR ---
pt rested comfortably through night intermittent confusion 2lnc-room air when sleeping tele a fib no bm pérez 550ml pt refused pm bed bath pain x1 vss call light within reach, bed in lowest position. will continue to monitor.
--- NOTE | 2020-04-09 13:45 | NUR ---
ARRIVAL TO SURG UNIT PT ARRIVES IN HOSPITAL BED. ALERT PLEASANT. ORIENTED TO SELF, TIME, PLACE, DAUGHTER, AND EVENT. DOESN'T ALLOW HOB TO BE RAISED. WIGGLES TOES. AQUACEL DRSG x 2 TO R LEG/HIP. NO DRAINAGE NOTED. LUNGS DIM IN BASES. TELE IN PLACE. AFIB @ 81. EDEMA TO BLE.
--- NOTE | 2020-04-09 14:07 | NUR ---
04/09/20 1407 Patricia Gastelum VERIFICATIONS: EDIT CHART.
--- NOTE | 2020-04-09 17:55 | NUR ---
SHIFT SUMMARY SINCE ARRIVAL PT HAS BEEN QUIET. REFUSES REPOSITIONING BUT EXPLAINED TO PT SHE BECAME MORE CONFUSED THIS EVENING REPOSITIONING NEEDED TO BE DONE FOR HER BENEFIT. PT DOES NOT TOLERATE EVEN THE SLIGHTEST MOVEMENTS WELL, EVEN POST MEDICATIONS. CONTINUES TO REFUSE TO ALLOW BED TO BE RAISED MORE THAN 10-15 DEGREES.
[2020-04-10 05:26] LABS: BASOPHILS ABSOLUTE AUTO 0.07 K/mm3 (0.00-0.23); BASOPHILS PERCENT AUTO 1 % (0-2); EOSINOPHILS ABSOLUTE AUTO 0.67 K/mm3 (0.00-0.68); EOSINOPHILS PERCENT AUTO 4 % (0-6); Hematocrit 27.6 % (33.0-51.0); Hemoglobin 8.6 g/dL (11.5-16.0); IMMATURE GRAN ABSOLUTE AUTO 0.32 K/mm3 (0.00-0.10); IMMATURE GRAN PERCENT AUTO 2 % (0-1); LYMPHOCYTES ABSOLUTE AUTO 1.14 K/mm3 (0.84-5.20); LYMPHOCYTES PERCENT AUTO 8 % (21-46); MONOCYTES ABSOLUTE AUTO 1.22 K/mm3 (0.16-1.47); MONOCYTES PERCENT AUTO 8 % (4-13); Mean Corpuscular HGB 29.8 pg (26.0-34.0); Mean Corpuscular HGB Conc 31.2 g/dL (31.5-36.5); Mean Corpuscular Volume 96 fL (80-100); Mean Platelet Volume 10.9 fL (9.1-12.4); NEUTROPHILS ABSOLUTE AUTO 11.69 K/mm3 (1.96-9.15); NEUTROPHILS PERCENT AUTO 77 % (41-73); NRBC ABSOLUTE 0.03 K/mm3 (0.00-0.02); NRBC Auto 0.2 /100 WBC (0.0-0.2); Platelet Count 223 K/mm3 (150-400); RDW Coefficient Variation 13.8 % (11.7-14.2); RDW Standard Deviation 46.7 fL (35.1-46.3); Red Blood Cell Count 2.89 M/mm3 (3.80-5.20); White Blood Cell Count 15.11 K/mm3 (4.00-11.30)
[2020-04-10 06:10] LABS: Bun/Creatinine Ratio 18.7 (12.0-20.0); Calcium, Blood 7.6 mg/dL (8.5-10.1); Creatinine, Blood 1.07 mg/dL (0.40-1.00); Potassium, Blood 4.8 mmol/L (3.5-5.5)
--- NOTE | 2020-04-10 06:34 | NUR ---
SHIFT SUMMARY LYING IN SEMI FOWLERS WITH EYES CLOSED, HAS RESTED WELL THIS SHIFT. COMPLAINED EACH TIME SHE WAS REPOSITIONED OR SAT UP FURTHER TO TAKE MEDS. NURSING REITERATED NEED TO REPOSITION FREQUESNTLY. CONTINUES TO REFUSE, WILL REITERATE NEEDED. AM LABS DRAWN FROM LEFT UPPER ARM 20 POWERGLIDE. TAMI WITH EASE AFTER SOME MANIPULATION, FLUSES WITH EASE. VASQUEZ CATH DRAINING CLEAR YELLOW URINE TO GRAVITY. DENIES FURTHER NEEDS OR WANTS AT THIS TIME. SAFETY MEASURES IN PLACE. WILL CONTINUE TO MONITOR AND GIVE HAND OFF TO ONCOMING SHIFT USING SBAR.
--- NOTE | 2020-04-10 16:31 | NUR ---
CASE MANAGEMENT NOTIFIED RN EARLIER THAT PT HAS SNF BED ONCE PT HAS BM. ADMINISTERED PO PRN'S THIS MORNING AND PT RECEIVED SUPPOSITORY THIS AFTERNOON, WITH NO RESULTS. PT WAS PLACED ON BEDPAN AND ENCOURAGED TO TRY TO HAVE BM. RECEIVED ORDERS FOR SOAP SUDS ENEMA. ENEMA ADMINISTERED AND AWAITING TO SEE IF PT IS ABLE TO HAVE BM.
--- NOTE | 2020-04-10 17:12 | NUR ---
SHIFT SUMMARY PT IS ALERT TO PERSON, OCCASIONALLY PLACE. PT CAN BECOME ANXIOUS AND TEARFUL VERY EASILY. ENCOURAGED MOVEMENT WITH PT TO STRENTGHEN MUSCLES, HOWEVER PT IS RESISTANT TO MOVE BECAUSE "IT HURTS". PT WAS MEDICATED WITH PAIN MEDS, SEE EMAR FOR DOCUMENTATION, PT ALSO REPORTS SHE WOULDN'T HAVE ANY PAIN IF SHE DIDN'T MOVE. RIGHT HIP DRESSING IS C/D/I OLD STAINS NOTED. TELEMETERY HAS SHOWN PT TO BE IN A-FIB. VITALS HAVE BEEN STABLE. PT HAS DISCHARGE ORDERS, ONCE PT IS ABLE TO HAVE BM. MULTIPLE BOWEL PROTOCOL ORDERS HAVE BEEN ADMINISTERED, NO BM YET.
--- NOTE | 2020-04-10 17:30 | NUR ---
ASSUMED CARE OF PT.
--- NOTE | 2020-04-10 20:33 | NUR ---
PATIENT REFUSED.CATH CHECKED.ATTENDS CHECKED
[2020-04-11 04:04] LABS: BASOPHILS ABSOLUTE AUTO 0.09 K/mm3 (0.00-0.23); BASOPHILS PERCENT AUTO 1 % (0-2); EOSINOPHILS ABSOLUTE AUTO 0.81 K/mm3 (0.00-0.68); EOSINOPHILS PERCENT AUTO 4 % (0-6); Hematocrit 33.4 % (33.0-51.0); Hemoglobin 9.9 g/dL (11.5-16.0); IMMATURE GRAN ABSOLUTE AUTO 0.52 K/mm3 (0.00-0.10); IMMATURE GRAN PERCENT AUTO 3 % (0-1); LYMPHOCYTES ABSOLUTE AUTO 1.54 K/mm3 (0.84-5.20); LYMPHOCYTES PERCENT AUTO 8 % (21-46); MONOCYTES ABSOLUTE AUTO 2.27 K/mm3 (0.16-1.47); MONOCYTES PERCENT AUTO 12 % (4-13); Mean Corpuscular HGB Conc 29.6 g/dL (31.5-36.5); Mean Corpuscular Volume 98 fL (80-100); Mean Platelet Volume 10.6 fL (9.1-12.4); NEUTROPHILS ABSOLUTE AUTO 13.62 K/mm3 (1.96-9.15); NEUTROPHILS PERCENT AUTO 72 % (41-73); NRBC ABSOLUTE 0.11 K/mm3 (0.00-0.02); NRBC Auto 0.6 /100 WBC (0.0-0.2); Platelet Count 267 K/mm3 (150-400); RDW Standard Deviation 49.1 fL (35.1-46.3); Red Blood Cell Count 3.41 M/mm3 (3.80-5.20); White Blood Cell Count 18.85 K/mm3 (4.00-11.30)
--- NOTE | 2020-04-11 04:10 | NUR ---
SHIFT SUMMARY PT HAS BEEN A/O X2-3 DURING THE NIGHT. PT HAS BEEN SLEEPING MOST OF THE SHIFT. REPORTS PAIN WITH MOVEMENT BUT COMFORTABLE AT REST. PT HAS BEEN USING 2L O2 NC WHICH IS BASELINE FOR HER PER REPORT. HR HAS BEEN AVG. A-FIB IN 80'S DURING THE SHIFT. VASQUEZ PATENT WITH STAT LOCK IN PLACE. NO ACUTE CHANGES OVERNIGHT.
--- NOTE | 2020-04-11 13:09 | NUR ---
DISCHARGE SUMMARY PT A&OX4, VSS, TRANSPORT TO [facility], T96.2f, PAIN MEDICATION PROVIDED PRIOR TO DC, AQUACEL DRESSINGS CHANGED PRIOR TO DC, MEPILEX ON COCCYX CHANGED PRIOR TO DC. BM TODAY. REPORT CALLED TO CASTILLO NANCE [facility]. POWERGLIDE DC'D.
== END 2020-04-11 13:00 | DRG 481 ==
LOC: ER 20:56 → SURS 23:52 → PCU 23:52 → SURS 04-03 00:04 → PCU 04-05 05:37 → SURS 04-09 13:40
PROVIDERS: Emergency Medicine; Family Medicine; Internal Medicine; Orthopaedic Surgery; ADMIT Family Medicine
PROC: 02HV33Z Insertion of Infusion Device into Superior Vena Cava, Percutaneous Approach (ICD-10-PCS; 2020-04-04)
PROC: 0QS604Z Reposition Right Upper Femur with Internal Fixation Device, Open Approach (ICD-10-PCS; principal; 2020-04-07 08:00)
DX: S72.141A Displaced intertrochanteric fracture of right femur, initial encounter for closed fracture (principal); I48.20 Chronic atrial fibrillation, unspecified; N39.0 Urinary tract infection, site not specified; W19.XXXA Unspecified fall, initial encounter; I12.9 Hypertensive chronic kidney disease with stage 1 through stage 4 chronic kidney disease, or unspecified chronic kidney disease; N18.3 Chronic kidney disease, stage 3 (moderate); E11.22 Type 2 diabetes mellitus with diabetic chronic kidney disease; Z79.4 Long term (current) use of insulin; D72.829 Elevated white blood cell count, unspecified; E03.9 Hypothyroidism, unspecified; E83.51 Hypocalcemia; E66.01 Morbid (severe) obesity due to excess calories; Z68.39 Body mass index [BMI] 39.0-39.9, adult; E11.42 Type 2 diabetes mellitus with diabetic polyneuropathy
CPT/HCPCS: 36415; 71045; 71046; 73502; 73552; 73700; 76377; 76770; 80048; 80053; 81001; 83735; 83880; 84100; 84443; 84484; 85025; 87081; 87086; 90670; 93005; 93010; 93306; 94762; 96361-59; 96374-59; 96375-59; 97110; 97162; 97166; 97530; 99285-25; A9270; A9270-GY; C1713; C1751; J0696; J1160; J1170; J1650; J1885; J1940; J2405; J2550; J2704; J2765; J3010; J3370; J3480; J7030; J7042; J7050; J7120; U0002

== ENCOUNTER → 2020-07-01 | Outpatient (CLI) | payer OTHER ==
[~2020-07-01] MED LIST changes: +EFFEXOR XR37.5 MG PO
[2020-07-01 13:25] LABS: BASOPHILS ABSOLUTE AUTO 0.08 K/mm3 (0.00-0.23); BASOPHILS PERCENT AUTO 1 % (0-2); EOSINOPHILS ABSOLUTE AUTO 0.43 K/mm3 (0.00-0.68); EOSINOPHILS PERCENT AUTO 5 % (0-6); Hematocrit 48.5 % (33.0-51.0); Hemoglobin 15.1 g/dL (11.5-16.0); IMMATURE GRAN ABSOLUTE AUTO 0.03 K/mm3 (0.00-0.10); IMMATURE GRAN PERCENT AUTO 0 % (0-1); LYMPHOCYTES ABSOLUTE AUTO 1.28 K/mm3 (0.84-5.20); LYMPHOCYTES PERCENT AUTO 15 % (21-46); MONOCYTES ABSOLUTE AUTO 0.75 K/mm3 (0.16-1.47); MONOCYTES PERCENT AUTO 9 % (4-13); Mean Corpuscular HGB 29.9 pg (26.0-34.0); Mean Corpuscular HGB Conc 31.1 g/dL (31.5-36.5); Mean Corpuscular Volume 96 fL (80-100); Mean Platelet Volume 10.4 fL (9.1-12.4); NEUTROPHILS ABSOLUTE AUTO 5.88 K/mm3 (1.96-9.15); NEUTROPHILS PERCENT AUTO 70 % (41-73); Platelet Count 305 K/mm3 (150-400); RDW Coefficient Variation 16.3 % (11.7-14.2); RDW Standard Deviation 58.3 fL (35.1-46.3); Red Blood Cell Count 5.05 M/mm3 (3.80-5.20); White Blood Cell Count 8.45 K/mm3 (4.00-11.30)
== END | disposition home or self-care (01) ==
LOC: LAB RH 11:00 → EDSTATUS 14:46
PROVIDERS: Family Medicine
DX: M25.561 Pain in right knee (principal); R79.1 Abnormal coagulation profile; I10 Essential (primary) hypertension
CPT/HCPCS: 85025

== ENCOUNTER → 2020-07-07 | Outpatient (CLI) | payer OTHER ==
[2020-07-07 11:25] LABS: International Normalized Ratio 1.27; Prothrombin Time Results 13.4 Sec (9.7-11.5)
== END | disposition home or self-care (01) ==
LOC: LAB RH 10:09
PROVIDERS: Orthopaedic Surgery
DX: Z01.812 Encounter for preprocedural laboratory examination (principal)
CPT/HCPCS: 85610; 85730

== ENCOUNTER → 2020-11-20 | Outpatient (CLI) | payer OTHER ==
[2020-11-20 15:31] LABS: BASOPHILS ABSOLUTE AUTO 0.08 K/mm3 (0.00-0.23); BASOPHILS PERCENT AUTO 1 % (0-2); EOSINOPHILS ABSOLUTE AUTO 0.59 K/mm3 (0.00-0.68); EOSINOPHILS PERCENT AUTO 6 % (0-6); Hematocrit 49.5 % (33.0-51.0); Hemoglobin 15.9 g/dL (11.5-16.0); IMMATURE GRAN ABSOLUTE AUTO 0.04 K/mm3 (0.00-0.10); IMMATURE GRAN PERCENT AUTO 0 % (0-1); LYMPHOCYTES ABSOLUTE AUTO 1.64 K/mm3 (0.84-5.20); LYMPHOCYTES PERCENT AUTO 18 % (21-46); MONOCYTES ABSOLUTE AUTO 0.64 K/mm3 (0.16-1.47); MONOCYTES PERCENT AUTO 7 % (4-13); Mean Corpuscular HGB 33.7 pg (26.0-34.0); Mean Corpuscular HGB Conc 32.1 g/dL (31.5-36.5); Mean Corpuscular Volume 105 fL (80-100); Mean Platelet Volume 10.6 fL (9.1-12.4); NEUTROPHILS ABSOLUTE AUTO 6.22 K/mm3 (1.96-9.15); NEUTROPHILS PERCENT AUTO 68 % (41-73); Platelet Count 289 K/mm3 (150-400); RDW Coefficient Variation 12.7 % (11.7-14.2); RDW Standard Deviation 49.5 fL (35.1-46.3); Red Blood Cell Count 4.72 M/mm3 (3.80-5.20); White Blood Cell Count 9.21 K/mm3 (4.00-11.30)
[2020-11-20 15:39] LABS: International Normalized Ratio 1.26; Prothrombin Time Results 13.4 Sec (9.7-11.5)
[2020-11-20 16:14] LABS: Free Thyroxine 1.45 ng/dL (0.70-1.60); Thyroid Stimulating Hormone 0.933 uIU/mL (0.360-4.800)
== END | disposition home or self-care (01) ==
LOC: LAB RH 11:35 → LAB 11:35 → LAB SHORT 11:35
PROVIDERS: Family Medicine
DX: Z47.89 Encounter for other orthopedic aftercare (principal); S72.111D Displaced fracture of greater trochanter of right femur, subsequent encounter for closed fracture with routine healing; I48.91 Unspecified atrial fibrillation; N18.30 Chronic kidney disease, stage 3 unspecified
CPT/HCPCS: 84439; 84443; 85025; 85610

== ENCOUNTER → 2021-04-12 | Outpatient (CLI) | payer OTHER ==
[2021-04-12 09:12] LABS: BASOPHILS ABSOLUTE AUTO 0.07 K/mm3 (0.00-0.23); BASOPHILS PERCENT AUTO 1 % (0-2); EOSINOPHILS ABSOLUTE AUTO 0.45 K/mm3 (0.00-0.68); EOSINOPHILS PERCENT AUTO 5 % (0-6); Hematocrit 50.7 % (33.0-51.0); Hemoglobin 16.6 g/dL (11.5-16.0); IMMATURE GRAN ABSOLUTE AUTO 0.04 K/mm3 (0.00-0.10); IMMATURE GRAN PERCENT AUTO 0 % (0-1); LYMPHOCYTES ABSOLUTE AUTO 1.85 K/mm3 (0.84-5.20); LYMPHOCYTES PERCENT AUTO 20 % (21-46); MONOCYTES ABSOLUTE AUTO 0.95 K/mm3 (0.16-1.47); MONOCYTES PERCENT AUTO 10 % (4-13); Mean Corpuscular HGB 33.5 pg (26.0-34.0); Mean Corpuscular HGB Conc 32.7 g/dL (31.5-36.5); Mean Corpuscular Volume 102 fL (80-100); Mean Platelet Volume 11.4 fL (9.1-12.4); NEUTROPHILS ABSOLUTE AUTO 5.84 K/mm3 (1.96-9.15); NEUTROPHILS PERCENT AUTO 64 % (41-73); Platelet Count 245 K/mm3 (150-400); RDW Coefficient Variation 12.8 % (11.7-14.2); RDW Standard Deviation 48.2 fL (35.1-46.3); Red Blood Cell Count 4.95 M/mm3 (3.80-5.20)
[2021-04-12 09:55] LABS: Anion Gap 6 mmol/L (6-16); Blood Urea Nitrogen 28 mg/dL (8-24); Bun/Creatinine Ratio 21.1 (12.0-20.0); CO2, Blood 24 mmol/L (21-32); Calcium, Blood 8.8 mg/dL (8.5-10.1); Chloride, Blood 108 mmol/L (98-108); Creatinine, Blood 1.33 mg/dL (0.40-1.00); Glomerular Filtration Rate 38 (60-); Glucose, Blood 84 mg/dL (70-99); Iron Serum 135 ug/dL (50-170); LDL/HDL RATIO 3.9; Potassium, Blood 5.3 mmol/L (3.5-5.5); Sodium, Blood 138 mmol/L (136-145); Thyroid Stimulating Hormone 0.535 uIU/mL (0.360-4.800); Uric Acid, Blood 8.2 mg/dL (2.6-6.0); Very Low Density Lipoprot Chol 45 mg/dL (6-32)
[2021-04-12 09:56] LABS: Alanine Aminotransfer (ALT/SGP 23 U/L (12-78); Albumin, Blood 3.1 g/dL (3.4-5.0); Albumin/Globulin Ratio 0.8 (0.8-1.8); Alk Phos 79 U/L (50-136); Aspartate Aminotrans (AST/SGOT 15 U/L (12-37); Bilirubin, Total 0.4 mg/dL (0.1-1.0); CHOL/HDL RATIO 6.2; Cholesterol 206 mg/dL (50-200); HDL Cholesterol 33 mg/dL (>39); Low Density Lipoprotein Chol 128 mg/dL (0-110); Total Protein, Blood 7.1 g/dL (6.4-8.2); Triglycerides 225 mg/dL (30-160)
== END | disposition home or self-care (01) ==
LOC: LAB 07:58 → LAB RH 07:58 → EDSTATUS 12:12
PROVIDERS: Family Medicine
DX: E03.9 Hypothyroidism, unspecified (principal); I11.0 Hypertensive heart disease with heart failure; I50.9 Heart failure, unspecified
CPT/HCPCS: 80053; 80061; 83540; 84443; 84550; 85025; 85651

== ENCOUNTER → 2021-08-10 | Outpatient (CLI) | payer OTHER ==
[~2021-08-10] MED LIST changes: +ALBU90OI INH; +ALDACTONE25 MG PO; +BUPRENORPHINE1 EAC9 TOP; +CATAPRES0.1 MG PO; +CEFP200 PO; +CEPH500 PO; +Colace100 MG PO; +DILT30 PO; +Effexor Xr37.5 MG PO; +METO100 PO; +SYNTHROID150 MC1 PO; +TORSE20 PO; +Toprol Xl50 MG PO; +XARELTO10 M1 PO; +[UNRECOGNIZED DRUG - OTHER] PO
== END | disposition home or self-care (01) ==
LOC: EDSTATUS 10:33 → LAB RH 19:30
DX: N90.5 Atrophy of vulva (principal)
CPT/HCPCS: 87070; 87205

== ENCOUNTER → 2021-08-21 | Outpatient (CLI) | payer OTHER ==
[2021-08-21 09:34] LABS: Source, Urine Foley catheter
[2021-08-21 09:42] LABS: Appearance, Urine Hazy (Clear); Bilirubin, Urine Neg (Neg); Blood, Urine 4+ (Neg); Color, Urine Yellow (P-Yellow); Glucose Qualitative, Urine Neg (Neg); Ketones, Urine Neg (Neg); Leukocyte Esterase, Urine 1+ (Neg); Nitrite, Urine Neg (Neg); Protein, Urine 1+ (Neg); Specific Gravity, Urine 1.025 (1.003-1.022); Urobilinogen, Urine NORM (Normal)
[2021-08-21 09:49] LABS: Squamous Epithelial Cells Few /hpf (Few)
[2021-08-21 09:51] LABS: Amorphous Mod (0-Heavy); Bacteria Mod /hpf
== END | disposition home or self-care (01) ==
LOC: LAB RH 01:00 → EDSTATUS 10:34
PROVIDERS: Family Medicine
DX: N39.0 Urinary tract infection, site not specified (principal)
CPT/HCPCS: 81001; 87077; 87086; 87186

== ENCOUNTER → 2021-10-05 | Outpatient (CLI) | payer OTHER ==
[~2021-10-05] MED LIST changes: -ALBU90OI INH; -CEFP200 PO; -TORSE20 PO; -Toprol Xl50 MG PO
[2021-10-05 18:13] LABS: Source, Urine Foley catheter
[2021-10-05 18:16] LABS: Bilirubin, Urine Neg (Neg); Blood, Urine 5+ (Neg); Glucose Qualitative, Urine Neg (Neg); Ketones, Urine Neg (Neg); Leukocyte Esterase, Urine 3+ (Neg); Nitrite, Urine Pos (Neg); Protein, Urine 2+ (Neg); Specific Gravity, Urine 1.015 (1.003-1.022); Urobilinogen, Urine NORM (Normal)
[2021-10-05 18:24] LABS: Appearance, Urine Hazy (Clear); Color, Urine Pale Yellow (P-Yellow)
[2021-10-05 18:25] LABS: Bacteria Few /hpf; Red Blood Cells, Urine 25-50 /hpf (0-2); Squamous Epithelial Cells Few /hpf (Few)
[2021-10-05 18:26] LABS: Yeast/Fungi Urine Few /hpf
== END ==
LOC: LAB SHORT 17:30
PROVIDERS: Family Medicine
DX: N39.0 Urinary tract infection, site not specified (principal)
CPT/HCPCS: 81001

== ENCOUNTER 2021-12-29 18:56 | Inpatient (IN) | payer OTHER ==
[~2021-12-29] VITALS: Ht 157.5 cm; Wt 108.5 kg
[~2021-12-29 18:56] MED LIST changes: +ALBU90OI INH; +CEFP200 PO; +TORSE20 PO; +Toprol Xl50 MG PO
[2021-12-29 19:50] LABS: BASOPHILS ABSOLUTE AUTO 0.08 K/mm3 (0.00-0.23); BASOPHILS PERCENT AUTO 0 % (0-2); EOSINOPHILS ABSOLUTE AUTO 0.13 K/mm3 (0.00-0.68); EOSINOPHILS PERCENT AUTO 1 % (0-6); Hematocrit 51.6 % (33.0-51.0); Hemoglobin 17.2 g/dL (11.5-16.0); IMMATURE GRAN ABSOLUTE AUTO 0.13 K/mm3 (0.00-0.10); IMMATURE GRAN PERCENT AUTO 1 % (0-1); LYMPHOCYTES ABSOLUTE AUTO 0.53 K/mm3 (0.84-5.20); LYMPHOCYTES PERCENT AUTO 3 % (21-46); MONOCYTES ABSOLUTE AUTO 1.04 K/mm3 (0.16-1.47); MONOCYTES PERCENT AUTO 5 % (4-13); Mean Corpuscular HGB 31.6 pg (26.0-34.0); Mean Corpuscular HGB Conc 33.3 g/dL (31.5-36.5); Mean Corpuscular Volume 95 fL (80-100); Mean Platelet Volume 10.5 fL (9.1-12.4); NEUTROPHILS ABSOLUTE AUTO 18.02 K/mm3 (1.96-9.15); NEUTROPHILS PERCENT AUTO 90 % (41-73); Platelet Count 284 K/mm3 (150-400); RDW Coefficient Variation 14.6 % (11.7-14.2); RDW Standard Deviation 51.3 fL (35.1-46.3); Red Blood Cell Count 5.45 M/mm3 (3.80-5.20); White Blood Cell Count 19.93 K/mm3 (4.00-11.30)
[2021-12-29 20:36] LABS: Albumin, Blood 2.8 g/dL (3.4-5.0); Albumin/Globulin Ratio 0.7 (0.8-1.8); Bilirubin, Total 1.2 mg/dL (0.1-1.0); Bun/Creatinine Ratio 17.7 (12.0-20.0); Calcium, Blood 8.9 mg/dL (8.5-10.1); Creatinine, Blood 1.13 mg/dL (0.40-1.00); Globulin, Blood 4.2 g/dL (2.2-4.0); Potassium, Blood 5.1 mmol/L (3.5-5.5); Thyroid Stimulating Hormone 1.44 uIU/mL (0.360-4.800)
[2021-12-29 21:16] LABS: Source, Urine Straight Cath
[2021-12-29 21:24] LABS: Appearance, Urine Cloudy (Clear); Bilirubin, Urine Neg (Neg); Blood, Urine 5+ (Neg); Color, Urine Yellow (P-Yellow); Glucose Qualitative, Urine Neg (Neg); Ketones, Urine 1+ (Neg); Leukocyte Esterase, Urine 3+ (Neg); Nitrite, Urine Pos (Neg); Protein, Urine 3+ (Neg); Specific Gravity, Urine 1.025 (1.003-1.022); Urobilinogen, Urine 1+ (Normal)
[2021-12-29 21:26] LABS: Bacteria Many /hpf; Red Blood Cells, Urine 0-2 /hpf (0-2); Squamous Epithelial Cells Many /hpf (Few); White Blood Cells, Urine 50-100 /hpf (0-5)
[2021-12-29] MEDS ORDERED: SENN187 PO (21:44)
[2021-12-29] MEDS ORDERED: MACROBID 100 M100 MG PO (21:47)
[2021-12-29 23:16] LABS: Magnesium, Blood 2.3 mg/dL (1.6-2.4)
[2021-12-29 23:37] LABS: Bicarbonate Venous 22.6 mmol/L (24.0-30.0); PCO2 Venous 39.8 mmHg (38-42); pH Blood Venous 7.37 (7.34-7.37)
[2021-12-29 23:38] LABS: Base Excess Venous -2.4 mmol/L
[2021-12-29 23:55] LABS: International Normalized Ratio 1.34; Prothrombin Time Results 13.8 Sec (9.7-11.5)
--- NOTE | 2021-12-30 01:00 | NUR ---
PT ADMITTED TO ROOM PCU 10 FROM ED. PT ARRIVES TO ROOM AT 2325. SLIDE TRANSFERRED TO BED. PT ALERT AND SOMEWHAT ORIENTED. PT'S DAUGHTER ACCOMPANIES TO ROOM. PT VERY ANXIOUS AND PRESENTS FEARFUL OF ANY PROCEDURES OR CHANGES. PT NEEDS REASSURANCE. PT'S DAUGHTER HAS LEFT FOR THE NIGHT. CONSENTS SIGNED. CARDIZEM AT 10 MG/HOUR. HEART RATED A FIB AT 100-110'S. WILL REVIEW CHART AND PLAN OF CARE FOR THIS PT.
[2021-12-30 04:49] LABS: BASOPHILS ABSOLUTE AUTO 0.05 K/mm3 (0.00-0.23); BASOPHILS PERCENT AUTO 0 % (0-2); EOSINOPHILS ABSOLUTE AUTO 0.94 K/mm3 (0.00-0.68); EOSINOPHILS PERCENT AUTO 7 % (0-6); Hematocrit 50.9 % (33.0-51.0); Hemoglobin 16.5 g/dL (11.5-16.0); IMMATURE GRAN ABSOLUTE AUTO 0.09 K/mm3 (0.00-0.10); IMMATURE GRAN PERCENT AUTO 1 % (0-1); LYMPHOCYTES ABSOLUTE AUTO 0.68 K/mm3 (0.84-5.20); LYMPHOCYTES PERCENT AUTO 5 % (21-46); MONOCYTES ABSOLUTE AUTO 0.87 K/mm3 (0.16-1.47); MONOCYTES PERCENT AUTO 6 % (4-13); Mean Corpuscular HGB 31.5 pg (26.0-34.0); Mean Corpuscular HGB Conc 32.4 g/dL (31.5-36.5); Mean Corpuscular Volume 97 fL (80-100); Mean Platelet Volume 10.8 fL (9.1-12.4); NEUTROPHILS ABSOLUTE AUTO 11.75 K/mm3 (1.96-9.15); NEUTROPHILS PERCENT AUTO 82 % (41-73); Platelet Count 274 K/mm3 (150-400); RDW Coefficient Variation 14.7 % (11.7-14.2); RDW Standard Deviation 52.9 fL (35.1-46.3); Red Blood Cell Count 5.23 M/mm3 (3.80-5.20); White Blood Cell Count 14.38 K/mm3 (4.00-11.30)
[2021-12-30 06:48] LABS: Bun/Creatinine Ratio 15.8 (12.0-20.0); Calcium, Blood 8.4 mg/dL (8.5-10.1); Creatinine, Blood 1.52 mg/dL (0.40-1.00); Potassium, Blood 4.4 mmol/L (3.5-5.5)
--- NOTE | 2021-12-30 08:48 | NUR ---
ASSUMED CARE REPORT FROM VITOR NANCE AT 0700. PT RESTING IN BED. WAKES c VERBAL STIMULI. A&OX 2. RELUCANT TO PARTICIPATE IN ASSESSMENT. ANSWERS QUESTIONS IN ONE WORD RESPONSES. KEEPS EYES CLOSED DURING ASSESSMENT. ANXIOUS AND WITHDRAWN. REFUSING PO MEDS AND BREAKFAST. AFIB ON MONITOR, RATE 100-110'S. DILTIAZEM GTT AT 10 MG/HR. HEPARIN GTT AT 15 UNITS/KG/HR. BP STABLE. LUNGS CLEAR. RA. ABD OBESE, SOFT, NON TENDER. BT X 4. LEGS WARM BILATERALLY. PPP. 1+ EDEMA TO BLE. ART DUPLEX COMPLETE, ECHO PENDING. WILL CONTINUE TO MONITOR.
--- NOTE | 2021-12-30 17:28 | NUR ---
SHIFT SUMMARY PT MUCH MORE INTERACTIVE THAN AM. SLEPT MOST OF SHIFT BUT WHEN WAKE DURING LUNCH AND DINNER, PLEASANT, INTERACTIVE, A&OX 3. FOLLOWING COMMANDS. STATES SHE IS FEELING MUCH BETTER. INDEPENDENT c MEALS, GOOD APPETITE. HEPARIN AND CARDIZEM GTT D/C'D THIS AM. ELIQUIS AND METOPROLOL PO GIVEN, EVENING METOPROLOL HELD D/T MAP <65. AFIB, RATE 110'S. WILL GIVE IF MAP IMPROVES. PT DENIES COMPLAINTS OR SYMPTOMS. 2 EPISODES OF URINARY INCONTINENCE. WILL CONTINUE TO MONITOR UNTIL REPORT TO ONCOMING NURSE.
[2021-12-31 05:52] LABS: Hematocrit 47.9 % (33.0-51.0); Hemoglobin 15.3 g/dL (11.5-16.0); Mean Corpuscular HGB 31.5 pg (26.0-34.0); Mean Corpuscular HGB Conc 31.9 g/dL (31.5-36.5); Mean Corpuscular Volume 99 fL (80-100); Mean Platelet Volume 10.5 fL (9.1-12.4); Platelet Count 246 K/mm3 (150-400); RDW Coefficient Variation 14.7 % (11.7-14.2); Red Blood Cell Count 4.85 M/mm3 (3.80-5.20); White Blood Cell Count 9.79 K/mm3 (4.00-11.30)
[2021-12-31 06:11] LABS: Alanine Aminotransfer (ALT/SGP 19 U/L (12-78); Albumin, Blood 2.4 g/dL (3.4-5.0); Albumin/Globulin Ratio 0.6 (0.8-1.8); Alk Phos 71 U/L (50-136); Anion Gap 7 mmol/L (6-16); Aspartate Aminotrans (AST/SGOT 26 U/L (12-37); Bilirubin, Total 0.3 mg/dL (0.1-1.0); Blood Urea Nitrogen 36 mg/dL (8-24); Bun/Creatinine Ratio 21.6 (12.0-20.0); CHOL/HDL RATIO 5.5; CO2, Blood 26 mmol/L (21-32); Calcium, Blood 8.3 mg/dL (8.5-10.1); Chloride, Blood 105 mmol/L (98-108); Cholesterol 170 mg/dL (50-200); Creatinine, Blood 1.67 mg/dL (0.40-1.00); Globulin, Blood 4.1 g/dL (2.2-4.0); Glomerular Filtration Rate 30 (60-); Glucose, Blood 105 mg/dL (70-99); HDL Cholesterol 31 mg/dL (>39); LDL/HDL RATIO 3.8; Low Density Lipoprotein Chol 116 mg/dL (0-110); Potassium, Blood 4.6 mmol/L (3.5-5.5); Sodium, Blood 138 mmol/L (136-145); Total Protein, Blood 6.5 g/dL (6.4-8.2); Triglycerides 113 mg/dL (30-160); Very Low Density Lipoprot Chol 22 mg/dL (6-32)
--- NOTE | 2021-12-31 06:19 | NUR ---
Overnoc with HR issues, AFIB rates 110-150s --> paged and made aware, BP has been soft with good maps, able to give 2 doses of IV push Metoprolol with some minimal outcomes, could benefit from another rate control med that has litle effect on pressure, room air, afebrile, will continue to monitor GOYO Miller
--- NOTE | 2021-12-31 18:38 | NUR ---
SHIFT SUMMARY PT A/O X3, FORGETFUL AT TIMES. PT IS COOPERATIVE OF CARE. PT HR WAS A-FIB IN THE 120-130'S AT BEGINNING OF SHIFT, HR IN 110'S SINCE AMIO GTT RUNNING. OTHER VSS THROUGHOUT SHIFT. NO REPORT OF CHEST PAIN/PRESSURE THROUGHOUT SHIFT. NO REPORT SOB/DYSPNEA THROUGHOUT SHIFT. PT ANXIOUS TO GO HOME, CONSTANTLY ASKS WHENSHE GETS TO LEAVE.
[2022-01-01 04:41] LABS: Hemoglobin 15.4 g/dL (11.5-16.0); Mean Corpuscular HGB 31.1 pg (26.0-34.0); Mean Corpuscular HGB Conc 32.1 g/dL (31.5-36.5); Mean Corpuscular Volume 97 fL (80-100); Mean Platelet Volume 10.4 fL (9.1-12.4); Platelet Count 278 K/mm3 (150-400); RDW Coefficient Variation 14.6 % (11.7-14.2); RDW Standard Deviation 52.9 fL (35.1-46.3); Red Blood Cell Count 4.95 M/mm3 (3.80-5.20); White Blood Cell Count 9.22 K/mm3 (4.00-11.30)
[2022-01-01 05:11] LABS: Albumin, Blood 2.6 g/dL (3.4-5.0); Albumin/Globulin Ratio 0.6 (0.8-1.8); Bilirubin, Total 0.3 mg/dL (0.1-1.0); Bun/Creatinine Ratio 27.2 (12.0-20.0); Calcium, Blood 8.7 mg/dL (8.5-10.1); Creatinine, Blood 1.47 mg/dL (0.40-1.00); Potassium, Blood 4.4 mmol/L (3.5-5.5); Total Protein, Blood 6.6 g/dL (6.4-8.2)
--- NOTE | 2022-01-01 06:29 | NUR ---
SHIFT SUMMARY PT IS HAS BEEN ALERT AND ORIENTED BUT FORGETFUL AT TIMES. THIS AM PT WAS CONFUSED ASKING WHERE SHE WAS. THERE HAVE BEEN NO OTHER ACUTE CHANGES T/O THE NIGHT. VITALS ARE STABLE AND SHE IS ON ROOM AIR WITH SATS ABOVE 92%. SHE IS ON AMIODORONE GTT. DENIES CHEST PAIN/PRESSURE OR SOB. SHE IS INCONT IN BRIEF. BED ALARM IS ACTIVE DUE TO IMPULSIVENESS DURING DAY SHIFT. CALL LIGHT IS WITHIN REACH.
--- NOTE | 2022-01-01 17:38 | NUR ---
SHIFT SUMMARY PT A/O X3, FORGETFUL AT TIMES. VSS THROUGHOUT SHIFT WITH O2 SATS >92% ON RA. NO REPORT OF CHEST PAIN/PRESSURE THROUGHOUT SHIFT. NO REPORT OF SOB/DYSPNEA THROUGHOUT SHIFT. DR NOTIFIED OF CONTROLED HR WITH COMPLETION OF AMIO GTT, PT SWITCHED TO PO AMIODARONE PER ORDERS. A-FIB HR MORE CONTROLLED TODAY RANGING FROM 80-100'S. PT INCONTINENT OF URINE, ATTENDS IN PLACE AND CHAGED FREQUENTLY. PT ABLE TO ASSIST WITH ROLLING IN BED FOR ATTEND CHANGES.
--- NOTE | 2022-01-01 20:00 | NUR ---
RECEIVED HAND OFF FROM Tyron VELAZQUEZ RN USING SBAR. LYING IN SEMI FOWLERS WITH EYES OPEN. AAO X3, FOLLOWS ALL COMMANDS. PLEASANT AND COOPERATIVE WITH ASSESSMENT. REORIENTED TO ROOM, CALL SYSTEM, AND POC, VOICES UNDERSTANDING. RESPIRATIONS EVEN AND UNLABORED ON ROOM AIR. LUNG SOUNDS CLEAR IN ALL POSADAS AND DIMINSHED IN BASES BILATERALLY. ABDOMEN SOFT AND NONDISTENDED, BOWEL TONES NOTED IN ALL QUADS. LEFT HAND 20G SL PIV IS PATENT, FLUSHING WITH EASE. lEFT UPPER ARM SL POWERGLIDE IS PATENT, EACH LUMEN FLUSHING WITH EASE AND GOOD BLOOD RETURN NOTED. TELE SHOWS A-FIB WITH RATE IN THE 100'S. INCONTINENT OF BOWEL AND BLADDER. CHECKED FREQUENTLY AND CHANGED PRN. DENIES PAIN, DISCOMFORT, OR FURTHER NEEDS AT THIS TIME. SAFETY MEASURES IN PLACE. WILL CONTINUE TO MONITOR AND ADDRESS NEEDS THEY OCCUR.
[2022-01-02 05:21] LABS: Hematocrit 51.1 % (33.0-51.0); Hemoglobin 16.4 g/dL (11.5-16.0); Mean Corpuscular HGB Conc 32.1 g/dL (31.5-36.5); Mean Corpuscular Volume 97 fL (80-100); Mean Platelet Volume 10.4 fL (9.1-12.4); Platelet Count 287 K/mm3 (150-400); RDW Coefficient Variation 14.6 % (11.7-14.2); RDW Standard Deviation 52.7 fL (35.1-46.3); Red Blood Cell Count 5.29 M/mm3 (3.80-5.20)
--- NOTE | 2022-01-02 05:44 | NUR ---
SHIFT SUMMARY LYING IN SEMI FOWLERS WITH EYES OPEN. AAO X3, FOLLOWS ALL COMMANDS. PLEASANT AND COOPERATIVE THIS SHIFT. RESPIRATIONS EVEN AND UNLABORED ON ROOM AIR. ABDOMEN SOFT AND NONDISTENDED. LEFT HAND 20G SL PIV AND LEFT UPPER ARM SL POWERGLIDE WERE REMOVED BY PT. ROWAN CONTACTED AND ORDER RECEVED TO LEAVE OUT IV'S. TELE SHOWS A-FIB WITH RATE IN THE 100'S. INCONTINENT OF BOWEL AND BLADDER. CHECKED FREQUENTLY AND CHANGED PRN. DENIES PAIN, DISCOMFORT, OR FURTHER NEEDS AT THIS TIME. SAFETY MEASURES IN PLACE. WILL CONTINUE TO MONITOR AND ADDRESS NEEDS THEY OCCUR. WILL GIVE HAND OFF TO ONCOMING SHIFT USING SBAR.
[2022-01-02 05:58] LABS: Albumin, Blood 2.6 g/dL (3.4-5.0); Albumin/Globulin Ratio 0.6 (0.8-1.8); Bilirubin, Total 0.5 mg/dL (0.1-1.0); Bun/Creatinine Ratio 27.5 (12.0-20.0); Calcium, Blood 8.7 mg/dL (8.5-10.1); Creatinine, Blood 1.31 mg/dL (0.40-1.00); Globulin, Blood 4.2 g/dL (2.2-4.0); Potassium, Blood 4.1 mmol/L (3.5-5.5); Total Protein, Blood 6.8 g/dL (6.4-8.2)
[2022-01-02] MEDS ORDERED: Amiodarone HCl200 MG PO (10:31)
[2022-01-02] MEDS ORDERED: AMIODARONE HCL400 M2 PO (10:31)
[2022-01-02] MEDS ORDERED: AMOX875 PO (10:32)
--- NOTE | 2022-01-02 17:52 | NUR ---
PT DISCHARGE TO [facility], COMMUNICATED TO AMY (CAREGIVER) DISCHARGE INFORMATION AND NEW MEDICATION, DISCHARGE PAPER AND BELONGINGS SENT WITH THE PT. METOPROLOL AND ELIQUS BEDTIME DOSE WAS GIVEN TO PT PRIOR TO DISCHARGE PER CAREGIVER MEDICATIONS WILL NO BE FILLED TIL TOMORROW AM. PT TRANSPORTED VIA GURNEY AMBULANCE. NO OTHER ISSUES ENCOUNTERED PRIOR TO DISCHARGE
== END 2022-01-02 17:43 | disposition home or self-care (01) | DRG 871 ==
LOC: ER 18:56 → PCU 22:30
PROVIDERS: Emergency Medicine; Internal Medicine; ADMIT Family Medicine
DX: A41.9 Sepsis, unspecified organism (principal); I50.31 Acute diastolic (congestive) heart failure; G92.8 Other toxic encephalopathy; I13.0 Hypertensive heart and chronic kidney disease with heart failure and stage 1 through stage 4 chronic kidney disease, or unspecified chronic kidney disease; N39.0 Urinary tract infection, site not specified; E87.1 Hypo-osmolality and hyponatremia; I48.91 Unspecified atrial fibrillation; F03.90 Unspecified dementia, unspecified severity, without behavioral disturbance, psychotic disturbance, mood disturbance, and anxiety; I27.20 Pulmonary hypertension, unspecified; N18.30 Chronic kidney disease, stage 3 unspecified; E11.51 Type 2 diabetes mellitus with diabetic peripheral angiopathy without gangrene; R65.20 Severe sepsis without septic shock; I35.0 Nonrheumatic aortic (valve) stenosis; I36.1 Nonrheumatic tricuspid (valve) insufficiency; E03.9 Hypothyroidism, unspecified; E11.22 Type 2 diabetes mellitus with diabetic chronic kidney disease; E66.01 Morbid (severe) obesity due to excess calories; I95.9 Hypotension, unspecified; Z68.34 Body mass index [BMI] 34.0-34.9, adult; Z79.01 Long term (current) use of anticoagulants; Z79.899 Other long term (current) drug therapy; Z98.890 Other specified postprocedural states
CPT/HCPCS: 36415; 71045; 80048; 80053; 80061; 81001; 82803; 82947; 83605; 83735; 83880; 84439; 84443; 85025; 85027; 85610; 85730; 87040; 87077; 87086; 87186; 93005; 93010; 93306; 93925; 96374; 96375; 96376; 99285-25; A9270; C1751; J0282; J0696; J1940; J2405; J7060; P9612

== ENCOUNTER 2022-08-22 11:56 | Inpatient (IN) | payer OTHER ==
[~2022-08-22] VITALS: Ht 157.5 cm; Wt 109.6 kg
[~2022-08-22 11:56] MED LIST changes: +AMIODARONE HCL400 M2 PO; +AMOX875 PO; +Amiodarone HCl200 MG PO; +MACROBID 100 M100 MG PO; +SENN187 PO
[2022-08-22 15:08] LABS: BASOPHILS ABSOLUTE AUTO 0.08 K/mm3 (0.00-0.23); BASOPHILS PERCENT AUTO 1 % (0-2); EOSINOPHILS ABSOLUTE AUTO 0.12 K/mm3 (0.00-0.68); EOSINOPHILS PERCENT AUTO 1 % (0-6); Hematocrit 51.8 % (33.0-51.0); Hemoglobin 17.5 g/dL (11.5-16.0); IMMATURE GRAN ABSOLUTE AUTO 0.12 K/mm3 (0.00-0.10); IMMATURE GRAN PERCENT AUTO 1 % (0-1); LYMPHOCYTES ABSOLUTE AUTO 0.68 K/mm3 (0.84-5.20); LYMPHOCYTES PERCENT AUTO 6 % (21-46); MONOCYTES ABSOLUTE AUTO 1.42 K/mm3 (0.16-1.47); MONOCYTES PERCENT AUTO 12 % (4-13); Mean Corpuscular HGB Conc 33.8 g/dL (31.5-36.5); Mean Corpuscular Volume 101 fL (80-100); Mean Platelet Volume 10.7 fL (9.1-12.4); NEUTROPHILS ABSOLUTE AUTO 9.28 K/mm3 (1.96-9.15); NEUTROPHILS PERCENT AUTO 79 % (41-73); Platelet Count 363 K/mm3 (150-400); RDW Coefficient Variation 14.5 % (11.7-14.2); RDW Standard Deviation 55.2 fL (35.1-46.3); Red Blood Cell Count 5.14 M/mm3 (3.80-5.20)
[2022-08-22 15:54] LABS: Alanine Aminotransfer (ALT/SGP 22 U/L (12-78); Albumin, Blood 2.4 g/dL (3.4-5.0); Albumin/Globulin Ratio 0.4 (0.8-1.8); Alk Phos 102 U/L (50-136); Anion Gap 7 mmol/L (6-16); Aspartate Aminotrans (AST/SGOT 17 U/L (12-37); Bilirubin, Total 0.8 mg/dL (0.1-1.0); Blood Urea Nitrogen 29 mg/dL (8-24); Bun/Creatinine Ratio 16.7 (12.0-20.0); C-Reactive Protein, High Sens. >190.000 mg/L (0.000-3.000); CO2, Blood 27 mmol/L (21-32); Calcium, Blood 9.7 mg/dL (8.5-10.1); Chloride, Blood 99 mmol/L (98-108); Creatinine, Blood 1.74 mg/dL (0.40-1.00); Globulin, Blood 5.5 g/dL (2.2-4.0); Glomerular Filtration Rate 29 (60-); Glucose, Blood 114 mg/dL (70-99); Potassium, Blood 5.3 mmol/L (3.5-5.5); Sodium, Blood 133 mmol/L (136-145); Total Protein, Blood 7.9 g/dL (6.4-8.2)
[2022-08-22 19:20] LABS: Body Fluid Crystals NEG (NEGATIVE)
[2022-08-22 19:33] LABS: BODY FLUID RBC 0.049 M/mm3 (0-0)
[2022-08-22 20:01] LABS: RBC Count, Synovial Fluid 49000 /mm3 (0-0)
[2022-08-22 20:02] LABS: WBC Count, Synovial Fluid 83940 /mm3 (0-180)
[2022-08-22 20:51] LABS: Lymphs, Synovial Fluid 2 % (0-15); Neutrophils, Synovial Fluid 98 % (0-24)
[2022-08-22 21:08] LABS: Appearance, Synovial Fluid Cloudy (Clear); Color, Synovial Fluid Red (None-P Yel)
[2022-08-22] MEDS ORDERED: BUPRENORPHINE1 EAC9 TD (23:50)
[2022-08-22] MEDS ORDERED: METO50ER PO (23:53)
[2022-08-22] MEDS ORDERED: POTCHL20ER PO (23:55)
[2022-08-22] MEDS ORDERED: LORA.5 PO (23:57)
[2022-08-22] MEDS ORDERED: Acetaminophen325 M1 PO (23:58)
--- NOTE | 2022-08-23 01:05 | NUR ---
ADMISSION PT ADMITTED TO UNIT AT APPROX 2250. DAUGHTER AT SIDE, BUT LEFT WITHIN A FEW MINUTES AFTER PUTTING CONTACT PHONE NUMBER ON WHITEBOARD. PT TRANSFERRED ONTO NEW BED AND NOTED TO BE SATURATED IN URINE. SATURATED LINENS CHANGED, SKIN CLEANSED, AND DRY ATTENDS PLACED. PT CAME TO FLOOR WITH PUREWICK IN PLACE--SET TO SUCTION. PERSONAL CLOTHING INCLUDING SHIRA LIFT SHEET PLACED IN BELONGINGS BAG. PT REPOSITIONED IN BED PER COMFORT. BLE ELEVATED ON PILLOWS AND HEEL PROTECTOR MEPILEX DRESSINGS PLACED BILAT. BANDAID TO R KNEE IN PLACE R/T TO CXS SENT FROM ER. PT REPORTS TOLERABLE PAIN TO R KNEE WHEN NOT BEING MOVED. IVF + ABX PER ORDERS. NPO AT MIDNIGHT. BED ALARM IN PLACE FOR SAFETY. ORIENTED TO CALL LIGHT AND CALL LIGHT WITHIN REACH.
--- NOTE | 2022-08-23 04:49 | NUR ---
SHIFT SUMMARY NO ACUTE CHANGES SINCE ARRIVAL TO UNIT. PT NPO SINCE MIDNIGHT WITH IVF INFUSING PER ORDERS. PT RESTING WELL IN BED AND DENIES PAIN IF R LEG IS LEFT ALONE. BLE ELEVATED ON PILLOWS. CHANGING ATTENDS PRN FOR URINARY INCONTINENCE. PT IS ALERT AND ORIENTED, BUT CAN BE FORGETFUL AT TIMES. BED ALARM IN PLACE FOR SAFETY. CALL LIGHT WITHIN REACH.
[2022-08-23 05:54] LABS: BASOPHILS ABSOLUTE AUTO 0.07 K/mm3 (0.00-0.23); BASOPHILS PERCENT AUTO 1 % (0-2); EOSINOPHILS ABSOLUTE AUTO 0.17 K/mm3 (0.00-0.68); EOSINOPHILS PERCENT AUTO 1 % (0-6); Hematocrit 48.2 % (33.0-51.0); Hemoglobin 16.3 g/dL (11.5-16.0); IMMATURE GRAN ABSOLUTE AUTO 0.12 K/mm3 (0.00-0.10); IMMATURE GRAN PERCENT AUTO 1 % (0-1); LYMPHOCYTES ABSOLUTE AUTO 0.53 K/mm3 (0.84-5.20); LYMPHOCYTES PERCENT AUTO 5 % (21-46); MONOCYTES ABSOLUTE AUTO 1.09 K/mm3 (0.16-1.47); MONOCYTES PERCENT AUTO 9 % (4-13); Mean Corpuscular HGB 34.2 pg (26.0-34.0); Mean Corpuscular HGB Conc 33.8 g/dL (31.5-36.5); Mean Corpuscular Volume 101 fL (80-100); NEUTROPHILS ABSOLUTE AUTO 9.77 K/mm3 (1.96-9.15); NEUTROPHILS PERCENT AUTO 83 % (41-73); RDW Coefficient Variation 14.6 % (11.7-14.2); Red Blood Cell Count 4.76 M/mm3 (3.80-5.20); White Blood Cell Count 11.75 K/mm3 (4.00-11.30)
[2022-08-23 06:53] LABS: Platelet Count 280 K/mm3 (150-400)
[2022-08-23 08:55] LABS: Albumin, Blood 1.9 g/dL (3.4-5.0); Albumin/Globulin Ratio 0.4 (0.8-1.8); Bilirubin, Total 0.5 mg/dL (0.1-1.0); Bun/Creatinine Ratio 17.2 (12.0-20.0); Calcium, Blood 8.9 mg/dL (8.5-10.1); Creatinine, Blood 1.51 mg/dL (0.40-1.00); Globulin, Blood 4.8 g/dL (2.2-4.0); Potassium, Blood 4.5 mmol/L (3.5-5.5); Total Protein, Blood 6.7 g/dL (6.4-8.2)
--- NOTE | 2022-08-23 18:09 | NUR ---
SHIFT SUMMARY PT IS PAINFUL BUT DOING BETTER w/ NORCO. XRAYS COMPLETED. PLAN FOR DECISION TOMORROW w/ ORTHO & DAUGHTER.
[2022-08-23 22:44] LABS: Vancomycin, Random 10.9 ug/mL
--- NOTE | 2022-08-23 23:56 | NUR ---
REPORT TO SHEA RN TO ASSUME CARE AT THIS TIME. PATIENT IS NPO FOR POSSIBLE SURGERY IN AM. VSS, PATIENT TURNED Q2 AND ATTENDS CHANGED PRN. BED ALARM IS ON FOR SAFETY, CALL LIGHT IS IN REACH.
--- NOTE | 2022-08-24 00:50 | NUR ---
ASSUMED CARE FROM JARETH NANCE. PT SLEEPING. IV ABX GIVEN. ALERT AND ORIENTEDX2-3. HX DEMENTIA.
--- NOTE | 2022-08-24 04:56 | NUR ---
SHIFT SUMMARY NO ACUTE CHANGES OVERNIGHT. PT SLEPT GOOD, AOX2-3. FOLLOW COMMANDS. ANSWERS APPROPRIATELY. SURGICAL PREP FOR INFECTION DONE THIS MORNING. PT DENIES PAIN. VSS. DENIES CHEST PAIN AND SOB. NPO AFTER MIDNIGHT. IV ABX ADMINISTERED AT MIDNIGHT. IV ON R SHOULDER AND L AC. PT APPEARS TO HAVE GENERALIZED EDEMA NON PITTING. PUREWICK USE FOR VOIDING. CALL LIGHT WITHIN REACH. WILL PROVIDE REPORT TO ONCOMING NURSE.
[2022-08-24 05:10] LABS: BASOPHILS ABSOLUTE AUTO 0.07 K/mm3 (0.00-0.23); BASOPHILS PERCENT AUTO 1 % (0-2); EOSINOPHILS ABSOLUTE AUTO 0.63 K/mm3 (0.00-0.68); EOSINOPHILS PERCENT AUTO 5 % (0-6); Hematocrit 45.3 % (33.0-51.0); IMMATURE GRAN ABSOLUTE AUTO 0.15 K/mm3 (0.00-0.10); IMMATURE GRAN PERCENT AUTO 1 % (0-1); LYMPHOCYTES PERCENT AUTO 7 % (21-46); MONOCYTES ABSOLUTE AUTO 1.31 K/mm3 (0.16-1.47); MONOCYTES PERCENT AUTO 11 % (4-13); Mean Corpuscular HGB 33.8 pg (26.0-34.0); Mean Corpuscular HGB Conc 33.1 g/dL (31.5-36.5); Mean Corpuscular Volume 102 fL (80-100); Mean Platelet Volume 10.9 fL (9.1-12.4); NEUTROPHILS ABSOLUTE AUTO 9.16 K/mm3 (1.96-9.15); NEUTROPHILS PERCENT AUTO 76 % (41-73); Platelet Count 408 K/mm3 (150-400); RDW Coefficient Variation 14.7 % (11.7-14.2); RDW Standard Deviation 55.3 fL (35.1-46.3); Red Blood Cell Count 4.44 M/mm3 (3.80-5.20); White Blood Cell Count 12.12 K/mm3 (4.00-11.30)
[2022-08-24 05:27] LABS: Albumin, Blood 1.8 g/dL (3.4-5.0); Albumin/Globulin Ratio 0.4 (0.8-1.8); Bilirubin, Total 0.4 mg/dL (0.1-1.0); Bun/Creatinine Ratio 19.2 (12.0-20.0); Creatinine, Blood 1.51 mg/dL (0.40-1.00); Globulin, Blood 4.9 g/dL (2.2-4.0); Potassium, Blood 4.4 mmol/L (3.5-5.5); Total Protein, Blood 6.7 g/dL (6.4-8.2)
--- NOTE | 2022-08-24 14:54 | NUR ---
Spiritual Care attempted. Pt. is sitting up in bed and eating lunch. Pt. is pleasant but declines spiritual care. Pt. verbalized gratitude for the spiritual care attempt.
--- NOTE | 2022-08-24 18:29 | NUR ---
SHIFT SUMMARY PT HAS DONE WELL TODAY. BEDREST PT IS WC/BED BOUND BASELINE. PLAN FOR OR I&D TOMORROW. EATING & DRINKING WELL.
[2022-08-25 04:01] LABS: BASOPHILS ABSOLUTE AUTO 0.07 K/mm3 (0.00-0.23); BASOPHILS PERCENT AUTO 1 % (0-2); EOSINOPHILS ABSOLUTE AUTO 0.52 K/mm3 (0.00-0.68); EOSINOPHILS PERCENT AUTO 5 % (0-6); Hematocrit 41.1 % (33.0-51.0); Hemoglobin 13.8 g/dL (11.5-16.0); IMMATURE GRAN ABSOLUTE AUTO 0.15 K/mm3 (0.00-0.10); IMMATURE GRAN PERCENT AUTO 1 % (0-1); LYMPHOCYTES ABSOLUTE AUTO 0.92 K/mm3 (0.84-5.20); LYMPHOCYTES PERCENT AUTO 8 % (21-46); MONOCYTES PERCENT AUTO 11 % (4-13); Mean Corpuscular HGB 34.2 pg (26.0-34.0); Mean Corpuscular HGB Conc 33.6 g/dL (31.5-36.5); Mean Corpuscular Volume 102 fL (80-100); Mean Platelet Volume 10.6 fL (9.1-12.4); NEUTROPHILS ABSOLUTE AUTO 8.55 K/mm3 (1.96-9.15); NEUTROPHILS PERCENT AUTO 75 % (41-73); Platelet Count 414 K/mm3 (150-400); RDW Coefficient Variation 14.6 % (11.7-14.2); RDW Standard Deviation 55.1 fL (35.1-46.3); Red Blood Cell Count 4.04 M/mm3 (3.80-5.20); White Blood Cell Count 11.41 K/mm3 (4.00-11.30)
[2022-08-25 04:22] LABS: Bun/Creatinine Ratio 18.5 (12.0-20.0); Calcium, Blood 8.6 mg/dL (8.5-10.1); Creatinine, Blood 1.57 mg/dL (0.40-1.00); Potassium, Blood 4.5 mmol/L (3.5-5.5)
--- NOTE | 2022-08-25 05:16 | NUR ---
VSS. PT HAS BEEN NPO SINCE 0000. SURGICAL [place] COMPLETE. PT DID NOT SLEEP TONIGHT. MEDICATED FOR PAIN WITH NORCO AND FENTYNAL. PT HAS VOIDED MULTIPLE TIMES, REQUIRING BRIEF CHANGE. POWERGLIDE PLACED IN RUE AT THE BEGINNING OF SHIFT. PLAN FOR PT TO GO TO OR TODAY FOR I&D OF THE RIGHT KNEE. THE PATIENT IS CURRENTLY RESTING IN BED, IN NO DISTRESS, CALL LIGHT IN REACH
--- NOTE | 2022-08-25 19:51 | NUR ---
SHIFT SUMMARY PATIENT ALERT AND RESPONDS APPROPRIATELY. DEV DELAY, UNABLE TO UNDERSTAND AND FOLLOW MORE COMPLEX ISSUES. BEDREST. 2 PERSON TURN AND CHANGED. RIGHT KNEE SWOLLEN AND PAINFUL. WENT TO OR WITH DR ARTAEGA FOR RIGHT KNEE I&D AND PLACEMENT OF ABX BEADS. PATIENT NPO THIS SHIFT. PUREWICK IN PLACE WITH MODERATE URINE OUTPUT. REPORT GIVEN TO REIMBURSEMENT COUNSELOR RN.
--- NOTE | 2022-08-26 06:22 | NUR ---
Patient arrived to unit from OR at 1999, surgical site clean dry and intact. No exudate noted for shift. Patient denies any pain upon assessment. Edema noted, no change from before. Pulses are thready in lower extremity. Purewick in place, tolerated clear liquids. Patient position changed q2. Slept well overnight. No questions at this time.
--- NOTE | 2022-08-26 09:13 | NUR ---
[address] RN AT BEDSIDE TO PLACE PICC LINE
--- NOTE | 2022-08-26 17:33 | NUR ---
1230 SPOKE WITH RAFI AT [facility] TO UPDATE ON PATIENTS STATUS. TRANSPORT TO [facility] HAS BEEN ARRANGED BY CARE MANAGEMENT FOR NEXT 3 DAYS AND RAFI AWARE OF PLAN
--- NOTE | 2022-08-26 17:36 | NUR ---
1450 PT GURNEY TRANSPORT BY NON EMERGENCY TRANSPORT VAN TO RETURN TO [facility]. PTS DAUGHTER PRESENT AT TIME OF DISCHARGE AND PATIENT AND DAUGHTER IN AGREEMENT WITH TRANSSFER PLAN
[2022-08-27] MEDS ORDERED: HYDR1TAB94 PO (11:58)
[2022-08-27] MEDS ORDERED: LACT PO (11:59)
[2022-08-27] MEDS ORDERED: Cranberry400 MG PO (12:00)
[2022-08-27] MEDS ORDERED: MIRALAX17 GM PO (12:00)
[2022-08-31] MEDS ORDERED: CEFTRIAXONE2 G1 IV (11:29)
== END 2022-08-26 14:50 | disposition home or self-care (01) | DRG 486 ==
LOC: ER 11:56 → SURS 20:36
PROVIDERS: Internal Medicine; Student in an Organized Health Care Education/Training Program; ADMIT Internal Medicine
PROC: 0S9C3ZZ Drainage of Right Knee Joint, Percutaneous Approach (ICD-10-PCS; principal; 2022-08-22)
PROC: 3E03329 Introduction of Other Anti-infective into Peripheral Vein, Percutaneous Approach (ICD-10-PCS; 2022-08-22)
PROC: 0SBC4ZZ Excision of Right Knee Joint, Percutaneous Endoscopic Approach (ICD-10-PCS; 2022-08-25)
PROC: 3E0U029 Introduction of Other Anti-infective into Joints, Open Approach (ICD-10-PCS; 2022-08-25)
PROC: 02HV33Z Insertion of Infusion Device into Superior Vena Cava, Percutaneous Approach (ICD-10-PCS; 2022-08-26)
PROC: 05H433Z Insertion of Infusion Device into Left Innominate Vein, Percutaneous Approach (ICD-10-PCS; 2022-08-26)
DX: T84.53XA Infection and inflammatory reaction due to internal right knee prosthesis, initial encounter (principal); M00.861 Arthritis due to other bacteria, right knee; N17.9 Acute kidney failure, unspecified; I48.91 Unspecified atrial fibrillation; I12.9 Hypertensive chronic kidney disease with stage 1 through stage 4 chronic kidney disease, or unspecified chronic kidney disease; N18.30 Chronic kidney disease, stage 3 unspecified; F41.9 Anxiety disorder, unspecified; F32.A Depression, unspecified; I89.0 Lymphedema, not elsewhere classified; E03.9 Hypothyroidism, unspecified; G31.84 Mild cognitive impairment of uncertain or unknown etiology; M71.9 Bursopathy, unspecified; Z96.651 Presence of right artificial knee joint; Z79.01 Long term (current) use of anticoagulants; Z79.899 Other long term (current) drug therapy; Z79.2 Long term (current) use of antibiotics; Z79.51 Long term (current) use of inhaled steroids; Z98.890 Other specified postprocedural states; Z87.440 Personal history of urinary (tract) infections
CPT/HCPCS: 20611; 36415; 36569; 71045; 73552; 73562-RT; 73590; 80048; 80053; 80202; 83605; 85025; 85651; 86141; 87070; 87075; 87077; 87186; 87205; 89051; 89060; 93005; 93010; 94760; 96365-59; 96375-59; 99285-25; A9270; C1751; J0696; J1100; J1885; J2405; J2704; J3010; J3370; J7030; J7050; J7120

== ENCOUNTER 2022-08-27 00:17 | Day surgery (SDC) | payer OTHER ==
[~2022-08-27 00:17] MED LIST changes: +Acetaminophen325 M1 PO; +BUPRENORPHINE1 EAC9 TD; +LORA.5 PO; +METO50ER PO; +POTCHL20ER PO
[2022-08-27] MEDS ORDERED: HYDR1TAB94 PO (11:58)
[2022-08-27] MEDS ORDERED: LACT PO (11:59)
[2022-08-27] MEDS ORDERED: Cranberry400 MG PO (12:00)
[2022-08-27] MEDS ORDERED: MIRALAX17 GM PO (12:00)
== END 2022-08-27 11:29 | disposition home or self-care (01) ==
LOC: ATC 00:17
DX: M00.861 Arthritis due to other bacteria, right knee (principal); I12.9 Hypertensive chronic kidney disease with stage 1 through stage 4 chronic kidney disease, or unspecified chronic kidney disease; N18.30 Chronic kidney disease, stage 3 unspecified; I48.91 Unspecified atrial fibrillation
CPT/HCPCS: J0696

== ENCOUNTER 2022-09-01 03:11 | Day surgery (SDC) | payer OTHER ==
[~2022-09-01 03:11] MED LIST changes: +CEFTRIAXONE2 G1 IV; +Cranberry400 MG PO; +LACT PO; +MIRALAX17 GM PO
== END 2022-09-01 10:45 | disposition home or self-care (01) ==
LOC: ATC 03:11
DX: M00.861 Arthritis due to other bacteria, right knee (principal)
CPT/HCPCS: 96374; J0696

== ENCOUNTER 2022-09-02 01:23 | Day surgery (SDC) | payer OTHER | END 2022-09-02 11:00 | disposition home or self-care (01) | LOC: ATC 01:23 | DX: M00.861 Arthritis due to other bacteria, right knee (principal) | CPT/HCPCS: J0696 ==

== ENCOUNTER 2022-09-04 00:46 | Day surgery (SDC) | payer OTHER | END 2022-09-04 22:45 | disposition home or self-care (01) | LOC: ATC 00:46 | DX: M00.861 Arthritis due to other bacteria, right knee (principal); N17.9 Acute kidney failure, unspecified; E03.9 Hypothyroidism, unspecified; I48.91 Unspecified atrial fibrillation; I12.9 Hypertensive chronic kidney disease with stage 1 through stage 4 chronic kidney disease, or unspecified chronic kidney disease; N18.30 Chronic kidney disease, stage 3 unspecified; M71.9 Bursopathy, unspecified; Z79.01 Long term (current) use of anticoagulants | CPT/HCPCS: J0696 ==

== ENCOUNTER 2022-09-06 00:44 | Day surgery (SDC) | payer OTHER | END 2022-09-06 11:07 | disposition home or self-care (01) | LOC: ATC 00:44 | DX: M00.861 Arthritis due to other bacteria, right knee (principal); I12.9 Hypertensive chronic kidney disease with stage 1 through stage 4 chronic kidney disease, or unspecified chronic kidney disease; N18.30 Chronic kidney disease, stage 3 unspecified; E03.9 Hypothyroidism, unspecified; I48.91 Unspecified atrial fibrillation; Z79.01 Long term (current) use of anticoagulants | CPT/HCPCS: J0696 ==

== ENCOUNTER 2022-09-07 00:25 | Day surgery (SDC) | payer OTHER | END 2022-09-07 15:48 | disposition home or self-care (01) | LOC: ATC 00:25 | DX: M00.861 Arthritis due to other bacteria, right knee (principal) | CPT/HCPCS: J0696 ==

== ENCOUNTER 2022-09-08 02:03 | Day surgery (SDC) | payer OTHER | END 2022-09-08 10:31 | disposition home or self-care (01) | LOC: ATC 02:03 | DX: M00.861 Arthritis due to other bacteria, right knee (principal); I48.91 Unspecified atrial fibrillation; I12.9 Hypertensive chronic kidney disease with stage 1 through stage 4 chronic kidney disease, or unspecified chronic kidney disease; N18.30 Chronic kidney disease, stage 3 unspecified; Z79.01 Long term (current) use of anticoagulants | CPT/HCPCS: 96374; J0696 ==

== ENCOUNTER 2022-09-09 00:27 | Day surgery (SDC) | payer OTHER | END 2022-09-09 10:14 | disposition home or self-care (01) | LOC: ATC 00:27 | DX: M00.861 Arthritis due to other bacteria, right knee (principal) | CPT/HCPCS: J0696 ==

== ENCOUNTER 2022-09-10 01:58 | Day surgery (SDC) | payer OTHER | END 2022-09-10 10:32 | disposition home or self-care (01) | LOC: ATC 01:58 | DX: M00.861 Arthritis due to other bacteria, right knee (principal) | CPT/HCPCS: J0696 ==

== ENCOUNTER 2022-09-15 03:35 | Day surgery (SDC) | payer OTHER | END 2022-09-15 10:45 | disposition home or self-care (01) | LOC: ATC 03:35 | DX: M00.861 Arthritis due to other bacteria, right knee (principal); Z96.651 Presence of right artificial knee joint; E03.9 Hypothyroidism, unspecified; I10 Essential (primary) hypertension; N18.30 Chronic kidney disease, stage 3 unspecified; I48.91 Unspecified atrial fibrillation; Z79.01 Long term (current) use of anticoagulants | CPT/HCPCS: 96374; J0696 ==

== ENCOUNTER 2022-09-16 00:22 | Day surgery (SDC) | payer OTHER | END 2022-09-16 10:30 | disposition home or self-care (01) | LOC: ATC 00:22 | DX: M00.861 Arthritis due to other bacteria, right knee (principal) | CPT/HCPCS: J0696 ==

== ENCOUNTER 2022-09-17 00:14 | Day surgery (SDC) | payer OTHER | END 2022-09-17 10:30 | disposition home or self-care (01) | LOC: ATC 00:14 | DX: M00.861 Arthritis due to other bacteria, right knee (principal); E03.9 Hypothyroidism, unspecified; I48.91 Unspecified atrial fibrillation; Z79.01 Long term (current) use of anticoagulants; N18.30 Chronic kidney disease, stage 3 unspecified; I12.9 Hypertensive chronic kidney disease with stage 1 through stage 4 chronic kidney disease, or unspecified chronic kidney disease | CPT/HCPCS: J0696 ==

== ENCOUNTER 2022-09-18 00:10 | Day surgery (SDC) | payer OTHER | END 2022-09-18 10:31 | disposition home or self-care (01) | LOC: ATC 00:10 | DX: M00.861 Arthritis due to other bacteria, right knee (principal) | CPT/HCPCS: J0696 ==

== ENCOUNTER 2022-09-19 00:36 | Day surgery (SDC) | payer OTHER | END 2022-09-19 10:45 | disposition home or self-care (01) | LOC: ATC 00:36 | DX: M00.861 Arthritis due to other bacteria, right knee (principal); I48.91 Unspecified atrial fibrillation; Z79.01 Long term (current) use of anticoagulants; E03.9 Hypothyroidism, unspecified; N18.30 Chronic kidney disease, stage 3 unspecified; I12.9 Hypertensive chronic kidney disease with stage 1 through stage 4 chronic kidney disease, or unspecified chronic kidney disease | CPT/HCPCS: J0696 ==

== ENCOUNTER 2022-09-20 00:17 | Day surgery (SDC) | payer OTHER | END 2022-09-20 12:11 | disposition home or self-care (01) | LOC: ATC 00:17 | DX: M00.861 Arthritis due to other bacteria, right knee (principal); E03.9 Hypothyroidism, unspecified; I48.91 Unspecified atrial fibrillation; N18.30 Chronic kidney disease, stage 3 unspecified; Z79.01 Long term (current) use of anticoagulants; I12.9 Hypertensive chronic kidney disease with stage 1 through stage 4 chronic kidney disease, or unspecified chronic kidney disease | CPT/HCPCS: J0696 ==

== ENCOUNTER 2022-09-21 00:42 | Day surgery (SDC) | payer OTHER | END 2022-09-21 10:25 | disposition home or self-care (01) | LOC: ATC 00:42 | DX: M00.9 Pyogenic arthritis, unspecified (principal); I12.9 Hypertensive chronic kidney disease with stage 1 through stage 4 chronic kidney disease, or unspecified chronic kidney disease; N18.30 Chronic kidney disease, stage 3 unspecified; I48.91 Unspecified atrial fibrillation; E03.9 Hypothyroidism, unspecified; Z96.651 Presence of right artificial knee joint | CPT/HCPCS: J0696 ==

== ENCOUNTER 2022-09-22 01:25 | Day surgery (SDC) | payer OTHER | END 2022-09-22 11:17 | disposition home or self-care (01) | LOC: ATC 01:25 | DX: M00.861 Arthritis due to other bacteria, right knee (principal); Z96.651 Presence of right artificial knee joint; E03.9 Hypothyroidism, unspecified; N18.30 Chronic kidney disease, stage 3 unspecified; I48.91 Unspecified atrial fibrillation; Z79.01 Long term (current) use of anticoagulants; I12.9 Hypertensive chronic kidney disease with stage 1 through stage 4 chronic kidney disease, or unspecified chronic kidney disease | CPT/HCPCS: 96374; J0696 ==

== ENCOUNTER 2022-09-26 01:08 | Day surgery (SDC) | payer OTHER | END 2022-09-26 10:30 | disposition home or self-care (01) | LOC: ATC 01:08 | DX: M00.9 Pyogenic arthritis, unspecified (principal); I12.9 Hypertensive chronic kidney disease with stage 1 through stage 4 chronic kidney disease, or unspecified chronic kidney disease; N18.30 Chronic kidney disease, stage 3 unspecified; I48.91 Unspecified atrial fibrillation; E03.9 Hypothyroidism, unspecified; Z79.899 Other long term (current) drug therapy; Z79.01 Long term (current) use of anticoagulants | CPT/HCPCS: 96374; J0696 ==

== ENCOUNTER 2022-09-27 03:12 | Day surgery (SDC) | payer OTHER | END 2022-09-27 11:31 | disposition home or self-care (01) | LOC: ATC 03:12 | DX: M00.9 Pyogenic arthritis, unspecified (principal); I12.9 Hypertensive chronic kidney disease with stage 1 through stage 4 chronic kidney disease, or unspecified chronic kidney disease; N18.30 Chronic kidney disease, stage 3 unspecified; E03.9 Hypothyroidism, unspecified; I48.91 Unspecified atrial fibrillation; Z79.01 Long term (current) use of anticoagulants | CPT/HCPCS: 96374; J0696 ==

== ENCOUNTER 2022-09-28 00:30 | Day surgery (SDC) | payer OTHER | END 2022-09-28 10:37 | disposition home or self-care (01) | LOC: ATC 00:30 | DX: M00.861 Arthritis due to other bacteria, right knee (principal); I48.91 Unspecified atrial fibrillation; E03.9 Hypothyroidism, unspecified; N18.30 Chronic kidney disease, stage 3 unspecified; I12.9 Hypertensive chronic kidney disease with stage 1 through stage 4 chronic kidney disease, or unspecified chronic kidney disease; Z79.01 Long term (current) use of anticoagulants | CPT/HCPCS: 96374; J0696 ==

== ENCOUNTER 2022-09-29 10:06 | Day surgery (SDC) | payer OTHER | END 2022-09-29 10:33 | disposition home or self-care (01) | LOC: ATC 10:06 | DX: M00.861 Arthritis due to other bacteria, right knee (principal); N18.30 Chronic kidney disease, stage 3 unspecified; I12.9 Hypertensive chronic kidney disease with stage 1 through stage 4 chronic kidney disease, or unspecified chronic kidney disease; E03.9 Hypothyroidism, unspecified; I48.91 Unspecified atrial fibrillation | CPT/HCPCS: 96374; J0696 ==

== ENCOUNTER 2022-09-30 00:13 | Day surgery (SDC) | payer OTHER | END 2022-09-30 10:37 | disposition home or self-care (01) | LOC: ATC 00:13 | DX: M00.9 Pyogenic arthritis, unspecified (principal); I12.9 Hypertensive chronic kidney disease with stage 1 through stage 4 chronic kidney disease, or unspecified chronic kidney disease; N18.30 Chronic kidney disease, stage 3 unspecified; I48.91 Unspecified atrial fibrillation; E03.9 Hypothyroidism, unspecified; Z79.01 Long term (current) use of anticoagulants | CPT/HCPCS: 96374; J0696 ==

== ENCOUNTER 2022-10-01 00:44 | Day surgery (SDC) | payer OTHER | END 2022-10-01 10:38 | disposition home or self-care (01) | LOC: ATC 00:44 | DX: M00.9 Pyogenic arthritis, unspecified (principal); I12.9 Hypertensive chronic kidney disease with stage 1 through stage 4 chronic kidney disease, or unspecified chronic kidney disease; N18.30 Chronic kidney disease, stage 3 unspecified; I48.91 Unspecified atrial fibrillation; E03.9 Hypothyroidism, unspecified; Z79.01 Long term (current) use of anticoagulants | CPT/HCPCS: 96374; J0696 ==

== ENCOUNTER 2022-10-02 00:28 | Day surgery (SDC) | payer OTHER | END 2022-10-02 10:41 | disposition home or self-care (01) | LOC: ATC 00:28 | DX: M00.9 Pyogenic arthritis, unspecified (principal); I12.9 Hypertensive chronic kidney disease with stage 1 through stage 4 chronic kidney disease, or unspecified chronic kidney disease; N18.30 Chronic kidney disease, stage 3 unspecified; E03.9 Hypothyroidism, unspecified; I48.91 Unspecified atrial fibrillation; Z79.01 Long term (current) use of anticoagulants | CPT/HCPCS: 96374; J0696 ==

== ENCOUNTER 2022-10-03 01:09 | Day surgery (SDC) | payer OTHER | END 2022-10-03 10:23 | disposition home or self-care (01) | LOC: ATC 01:09 | DX: M00.9 Pyogenic arthritis, unspecified (principal); I12.9 Hypertensive chronic kidney disease with stage 1 through stage 4 chronic kidney disease, or unspecified chronic kidney disease; N18.30 Chronic kidney disease, stage 3 unspecified; I48.91 Unspecified atrial fibrillation; Z79.01 Long term (current) use of anticoagulants | CPT/HCPCS: 96374; J0696 ==

== ENCOUNTER 2022-10-04 00:16 | Day surgery (SDC) | payer OTHER | END 2022-10-04 10:42 | disposition home or self-care (01) | LOC: ATC 00:16 | DX: M00.861 Arthritis due to other bacteria, right knee (principal); E03.9 Hypothyroidism, unspecified; I48.91 Unspecified atrial fibrillation; N18.30 Chronic kidney disease, stage 3 unspecified; I12.9 Hypertensive chronic kidney disease with stage 1 through stage 4 chronic kidney disease, or unspecified chronic kidney disease; Z79.01 Long term (current) use of anticoagulants | CPT/HCPCS: 96374; J0696 ==

== ENCOUNTER 2022-10-05 02:29 | Day surgery (SDC) | payer OTHER | END 2022-10-05 10:25 | disposition home or self-care (01) | LOC: ATC 02:29 | DX: M00.861 Arthritis due to other bacteria, right knee (principal); I12.9 Hypertensive chronic kidney disease with stage 1 through stage 4 chronic kidney disease, or unspecified chronic kidney disease; N18.30 Chronic kidney disease, stage 3 unspecified; E03.9 Hypothyroidism, unspecified; I48.91 Unspecified atrial fibrillation; Z79.01 Long term (current) use of anticoagulants | CPT/HCPCS: 96374; J0696 ==

== ENCOUNTER 2022-10-06 00:46 | Day surgery (SDC) | payer OTHER | END 2022-10-06 10:35 | disposition home or self-care (01) | LOC: ATC 00:46 | DX: M00.861 Arthritis due to other bacteria, right knee (principal); N18.30 Chronic kidney disease, stage 3 unspecified; I12.9 Hypertensive chronic kidney disease with stage 1 through stage 4 chronic kidney disease, or unspecified chronic kidney disease; E03.9 Hypothyroidism, unspecified; I48.91 Unspecified atrial fibrillation; Z79.01 Long term (current) use of anticoagulants | CPT/HCPCS: 96374; J0696 ==

== ENCOUNTER 2023-06-16 15:02 | Emergency (ER) | payer OTHER ==
[~2023-06-16] VITALS: Ht 157.5 cm; Wt 90.7 kg
[2023-06-16 15:34] LABS: BASOPHILS ABSOLUTE AUTO 0.08 K/mm3 (0.00-0.23); BASOPHILS PERCENT AUTO 1 % (0-2); EOSINOPHILS ABSOLUTE AUTO 0.72 K/mm3 (0.00-0.68); EOSINOPHILS PERCENT AUTO 9 % (0-6); Hematocrit 52.2 % (33.0-51.0); Hemoglobin 16.5 g/dL (11.5-16.0); IMMATURE GRAN ABSOLUTE AUTO 0.03 K/mm3 (0.00-0.10); IMMATURE GRAN PERCENT AUTO 0 % (0-1); LYMPHOCYTES ABSOLUTE AUTO 0.68 K/mm3 (0.84-5.20); LYMPHOCYTES PERCENT AUTO 8 % (21-46); MONOCYTES PERCENT AUTO 12 % (4-13); Mean Corpuscular HGB 32.4 pg (26.0-34.0); Mean Corpuscular HGB Conc 31.6 g/dL (31.5-36.5); Mean Corpuscular Volume 103 fL (80-100); NEUTROPHILS ABSOLUTE AUTO 5.54 K/mm3 (1.96-9.15); NEUTROPHILS PERCENT AUTO 69 % (41-73); Platelet Count 262 K/mm3 (150-400); RDW Coefficient Variation 16.7 % (11.7-14.2); RDW Standard Deviation 62.6 fL (35.1-46.3); Red Blood Cell Count 5.09 M/mm3 (3.80-5.20); White Blood Cell Count 8.05 K/mm3 (4.00-11.30)
[2023-06-16 15:52] LABS: Albumin, Blood 2.6 g/dL (3.4-5.0); Albumin/Globulin Ratio 0.6 (0.8-1.8); Bilirubin, Total 0.5 mg/dL (0.1-1.0); Bun/Creatinine Ratio 19.9 (12.0-20.0); Calcium, Blood 8.3 mg/dL (8.5-10.1); Creatinine, Blood 1.96 mg/dL (0.40-1.00); Globulin, Blood 4.3 g/dL (2.2-4.0); Potassium, Blood 4.7 mmol/L (3.5-5.5); Total Protein, Blood 6.9 g/dL (6.4-8.2)
[2023-06-16] MEDS ORDERED: OMEP20ER PO (16:19)
[2023-06-16 16:44] LABS: International Normalized Ratio 1.39; Prothrombin Time Results 14.3 Sec (9.7-11.5)
[2023-06-16 16:45] LABS: Source, Urine Straight Cath
[2023-06-16 16:54] LABS: Appearance, Urine Cloudy (Clear); Bilirubin, Urine Neg (Neg); Blood, Urine 2+ (Neg); Glucose Qualitative, Urine Neg (Neg); Ketones, Urine Neg (Neg); Leukocyte Esterase, Urine 3+ (Neg); Nitrite, Urine Neg (Neg); Protein, Urine 1+ (Neg); Urobilinogen, Urine NORM (Normal)
[2023-06-16] MEDS ORDERED: Aspir 8181 MG PO (17:06)
[2023-06-16] MEDS ORDERED: ATOR40TA PO (17:06)
[2023-06-16 17:14] LABS: Color, Urine Pale Yellow (P-Yellow)
[2023-06-16 17:15] LABS: White Blood Cells, Urine TNTC /hpf (0-5)
[2023-06-16 17:17] LABS: Bacteria Many /hpf; Hyaline Casts 0-2 /lpf (0-2); Squamous Epithelial Cells Many /hpf (Few)
[2023-06-16 17:22] LABS: U Amphetamine Screen Not Detected; U Barbituate Screen Not Detected; U Benzodiazapine Screen Not Detected; U Buprenorphine Screen Not Detected; U Cannabinoids Screen Not Detected; U Cocaine Screen Not Detected; U Methadone Screen Not Detected; U Methamphetamine Screen Not Detected; U Opiates Screen Not Detected; U Oxycodone Screen Not Detected; U Phencyclidine Screen Not Detected
[2023-06-16 17:30] VITALS: BP 121/78
== END 2023-06-16 19:30 | disposition home or self-care (01) ==
LOC: ER 15:02
PROVIDERS: Family Medicine
DX: R41.82 Altered mental status, unspecified (principal); Z86.73 Personal history of transient ischemic attack (TIA), and cerebral infarction without residual deficits; Z79.899 Other long term (current) drug therapy; E03.9 Hypothyroidism, unspecified; I10 Essential (primary) hypertension; I48.91 Unspecified atrial fibrillation
CPT/HCPCS: 70450; 70496; 70498; 71045; 80053; 81001; 84484; 85025; 85610; 85730; 87077; 87086; 87186; 93005; 93010; 99285-25; P9612; Q9967

== ENCOUNTER 2023-06-23 17:47 | Emergency (ER) | payer OTHER ==
[~2023-06-23] VITALS: Ht 167.6 cm; Wt 90.7 kg
[~2023-06-23 17:47] MED LIST changes: +ATOR40TA PO; +Aspir 8181 MG PO; +OMEP20ER PO
[2023-06-23 20:25] LABS: Chloride (POC) 106 mmol/L (98-108); Creatinine (POC) 2.2 mg/dL (0.6-1.0); Glucose (ISTAT POC) 93 mg/dL (70-99); Hemoglobin (POC) 18.7 g/dL (12.0-16.0); Potassium (POC) 5.2 mmol/L (3.5-5.5); Sodium (POC) 143 mmol/L (135-148); Total CO2 (POC) 28 mmol/L (21-32)
[2023-06-23 21:45] VITALS: BP 107/60
== END 2023-06-23 22:25 | disposition home or self-care (01) ==
LOC: ER 17:47
PROVIDERS: Student in an Organized Health Care Education/Training Program
DX: R56.9 Unspecified convulsions (principal); R40.4 Transient alteration of awareness; Z79.899 Other long term (current) drug therapy; Z79.82 Long term (current) use of aspirin; E03.9 Hypothyroidism, unspecified; I12.9 Hypertensive chronic kidney disease with stage 1 through stage 4 chronic kidney disease, or unspecified chronic kidney disease; N18.9 Chronic kidney disease, unspecified
CPT/HCPCS: 80047; 85014; 99285

== ENCOUNTER 2023-09-02 09:47 | Inpatient (IN) | payer OTHER ==
[~2023-09-02] VITALS: Ht 154.9 cm; Wt 106.0 kg
[2023-09-02] VITALS (13 sets, daily range): BP systolic 78–105; BP diastolic 41–77
[2023-09-02 10:42] LABS: BASOPHILS ABSOLUTE AUTO 0.07 K/mm3 (0.00-0.23); BASOPHILS PERCENT AUTO 1 % (0-2); EOSINOPHILS PERCENT AUTO 1 % (0-6); Hematocrit 48.5 % (33.0-51.0); Hemoglobin 15.9 g/dL (11.5-16.0); IMMATURE GRAN ABSOLUTE AUTO 0.11 K/mm3 (0.00-0.10); IMMATURE GRAN PERCENT AUTO 1 % (0-1); LYMPHOCYTES PERCENT AUTO 5 % (21-46); MONOCYTES ABSOLUTE AUTO 1.86 K/mm3 (0.16-1.47); MONOCYTES PERCENT AUTO 12 % (4-13); Mean Corpuscular HGB 32.3 pg (26.0-34.0); Mean Corpuscular HGB Conc 32.8 g/dL (31.5-36.5); Mean Corpuscular Volume 99 fL (80-100); NEUTROPHILS ABSOLUTE AUTO 12.29 K/mm3 (1.96-9.15); NEUTROPHILS PERCENT AUTO 80 % (41-73); NRBC ABSOLUTE 0.03 K/mm3 (0.00-0.02); NRBC Auto 0.2 /100 WBC (0.0-0.2); Platelet Count 187 K/mm3 (150-400); RDW Coefficient Variation 16.9 % (11.7-14.2); RDW Standard Deviation 61.2 fL (35.1-46.3); Red Blood Cell Count 4.92 M/mm3 (3.80-5.20); White Blood Cell Count 15.33 K/mm3 (4.00-11.30)
[2023-09-02 10:52] LABS: Albumin, Blood 2.2 g/dL (3.4-5.0); Albumin/Globulin Ratio 0.5 (0.8-1.8); Bilirubin, Total 0.8 mg/dL (0.1-1.0); Bun/Creatinine Ratio 19.9 (12.0-20.0); Calcium, Blood 8.9 mg/dL (8.5-10.1); Creatinine, Blood 3.07 mg/dL (0.40-1.00); Globulin, Blood 4.5 g/dL (2.2-4.0); Potassium, Blood 5.8 mmol/L (3.5-5.5); Total Protein, Blood 6.7 g/dL (6.4-8.2)
[2023-09-02 10:59] LABS: Mean Platelet Volume 13.1 fL (9.1-12.4)
[2023-09-02] MEDS ORDERED: NS 1,000 ML IV SCH ×2 (11:20→12:45)
[2023-09-02] MEDS ORDERED: Azithromycin 500 MG in NS 250 ML IV ONE (11:20)
[2023-09-02] MEDS ORDERED: Ampicillin Sod/Sulbactam Sod 3 GM in NS 100 ML IV ONE (11:20)
[2023-09-02] MEDS ORDERED: Ipratropium/Albuterol SulF 2.5-0.5MG/3 ML Amp INH SCH (12:40)
[2023-09-02] MEDS ORDERED: Acetaminophen 325 MG TABLET PO PRN (12:40)
[2023-09-02] MEDS ORDERED: FLU VACC QS2023-24(6MOS UP)/PF 60 MCG/0.5 ML SYRINGE IM SCH (12:45)
[2023-09-02] MEDS ORDERED: Ondansetron HCl 2 MG / ML 2ML Vial IV PRN (12:45)
[2023-09-02] MEDS ORDERED: Albuterol 2.5 MG/3 ML VIAL INH PRN (12:45)
[2023-09-02] MEDS ORDERED: NS 100 ML IV ONE (12:51)
[2023-09-02] MEDS ORDERED: BUPRENORPHINE 5 MCG/HR TOP SCH (13:35)
[2023-09-02] MEDS ORDERED: Piperacillin/Tazobactam Sod 2.25 GM in NS 50 ML IV SCH (14:00)
[2023-09-02] MEDS ORDERED: Acetaminophen 650 MG Supp PR PRN (16:15)
[2023-09-02] MEDS ORDERED: Metoprolol Tartrate 1 MG/ML 5 ML VIAL IV SCH (18:00)
[2023-09-02 18:04] LABS: Bun/Creatinine Ratio 19.8 (12.0-20.0); Calcium, Blood 8.7 mg/dL (8.5-10.1); Creatinine, Blood 3.08 mg/dL (0.40-1.00); Magnesium, Blood 2.5 mg/dL (1.6-2.4); Phosphorus, Blood 3.6 mg/dL (2.5-4.9); Potassium, Blood 5.6 mmol/L (3.5-5.5)
[2023-09-02] MEDS ORDERED: SENNA LAXATIVE8.6 MG PO (18:08)
[2023-09-02] MEDS ORDERED: ONDA4 PO (18:08)
[2023-09-02] MEDS ORDERED: NYSTATIN TOP (18:10)
--- NOTE | 2023-09-02 18:34 | NUR ---
PATIENT ADMIT TO PCU 20 WITH DAUGHTER ISRAEL WHO IS POA AT BEDSIDE. COPY OF POLST IN CHART. PATIENT ANSWERING TO SOME YES AND NO QUESTIONS. PERRLA, WEARING GLASSES. RIGHT FACIAL DROOP NOTED. FOLLOWING SIMPLE COMMANDS (SMILE, RAISE EYEBROWS, OPEN MOUTH). RIGHT ARM FLACCID WELL BILATERAL LOWER EXTREMITIES. PATIENT USING LEFT ARM TO TOUCH FACE, SHAKING AT TIMES BUT NOT FOLLOWING COMMANDS TO SQUEEZE THIS RN'S HAND WITH HER LEFT HAND. WHEELCHAIR BOUND AT BASELINE USING SHIRA LIFT TO TRANSFER. PATIENT LIVES AT [facility]. MED REC UPDATED AND COPY PLACED IN CHART. PER DAUGHTER THE DESCRIBED PRESENTATION ABOVE IS NORMAL. SHE STATES IN MAY SHE HAD IMAGING DONE OF HER HEAD TO CONFIRM MULTIPLE LOCATIONS OF STENOSIS. DAUGHTER STATES FACIAL DROOP, FLACID EXTREMITIES, AND WORSENING SPEECH HAS BEEN ONGOING FOR 6-7 MONTHS. DAUGHTER ALSO STATES THEY RECENTLY SAW PCP AND HE IS AWARE OF ONGOING SYMPTOMS/BASELINE. TELE SHOWING AFIB WITH HR 70-100'S. SBP 90-100'S. DOES NOT APPEAR IN ANY CARDIAC DISTRESS. EDEMA NOTED IN BLE WITH SOME REDNESS/PURPLE DISCOLORING TO TOES. PPP. LABS RECHECKED UPON PCU ADMIT. MAG 2.5 AND K 5.6. ON ROOM AIR AT THIS TIME SATING MID 90'S. EVEN AND UNLABORED RESPIRATIONS. MOIST/COARSE SOUNDING LUNGS. SUCTION SET UP AT BEDSIDE. NPO AT THIS TIME, SPEECH THERAPY ORDERS IN PLACE. Q4 ORAL CARE AND NEEDED. BOWEL TONES PRESENT. INCONTINENT OF URINE AND BOWEL. PURWICK IN PLACE. ATTENDS IN PLACE. REDNESS NOTED TO COCCYX, SEE PHOTO IN CHART. BARRIER CREAM AND MEPILEX APPLIED. DAUGHTER REPORTS PATIENT TAKING PILLS WHOLE AT BASELINE WITH WATER, AND EATING A REGULAR DIET. DAUGHTER STATES PATIENT IS ABLE TO FEED SELF OCCASIONALLY WITH WEIGHTED SPOON AT HER FACILITY BUT NEEDS ASSISTANCE GENERALLY. PATIENT HAS BEEN NONAMBULATORY FOR THE PAST 3 YEARS AND USES SHIRA LIFT AT BASELINE TO HER WHEELCHAIR. CALL LIGHT IN REACH, DAUGHTER AT BEDSIDE.
[2023-09-02] MEDS ORDERED: Amiodarone HCl 200 MG Tab PO SCH (21:00)
[2023-09-02] MEDS ORDERED: Metoprolol Succinate 50 MG TABCR PO SCH (21:00)
[2023-09-02] MEDS ORDERED: Atorvastatin 40 MG Tab PO SCH (21:00)
[2023-09-02] MEDS ORDERED: Lactobacil 2-S.Thermo-Bifido 1 1 Cap PO SCH (21:00)
[2023-09-03] VITALS (25 sets, daily range): BP systolic 70–146; BP diastolic 50–126
[2023-09-03 04:23] LABS: Hematocrit 48.2 % (33.0-51.0); Hemoglobin 15.3 g/dL (11.5-16.0); Mean Corpuscular HGB Conc 31.7 g/dL (31.5-36.5); Mean Corpuscular Volume 101 fL (80-100); Mean Platelet Volume 12.4 fL (9.1-12.4); Platelet Count 157 K/mm3 (150-400); RDW Coefficient Variation 17.1 % (11.7-14.2); RDW Standard Deviation 63.9 fL (35.1-46.3); Red Blood Cell Count 4.78 M/mm3 (3.80-5.20); White Blood Cell Count 11.99 K/mm3 (4.00-11.30)
[2023-09-03] MEDS ORDERED: NS 250 ML IV ONE (04:35)
[2023-09-03 04:54] LABS: Albumin/Globulin Ratio 0.4 (0.8-1.8); Bilirubin, Total 0.9 mg/dL (0.1-1.0); Bun/Creatinine Ratio 20.9 (12.0-20.0); Calcium, Blood 8.7 mg/dL (8.5-10.1); Creatinine, Blood 2.97 mg/dL (0.40-1.00); Globulin, Blood 4.5 g/dL (2.2-4.0); Potassium, Blood 5.5 mmol/L (3.5-5.5); Total Protein, Blood 6.5 g/dL (6.4-8.2)
[2023-09-03 05:28] LABS: Source, Urine Straight Cath
[2023-09-03 05:56] LABS: Appearance, Urine Cloudy (Clear); Bilirubin, Urine Neg (Neg); Blood, Urine 4+ (Neg); Color, Urine Yellow (P-Yellow); Glucose Qualitative, Urine Neg (Neg); Ketones, Urine Neg (Neg); Leukocyte Esterase, Urine 3+ (Neg); Nitrite, Urine Pos (Neg); Protein, Urine 3+ (Neg); Specific Gravity, Urine 1.015 (1.003-1.022); Urobilinogen, Urine NORM (Normal)
[2023-09-03] MEDS ORDERED: Pantoprazole Sodium 40 MG Injection IV SCH (06:00)
[2023-09-03] MEDS ORDERED: Omeprazole 20 MG CapCR PO SCH (06:00)
[2023-09-03] MEDS ORDERED: Levothyroxine Sodium 0.15 MG Tab PO SCH (06:00)
[2023-09-03] MEDS ORDERED: D5W-1/2NS 1,000 ML IV SCH ×2 (06:15→16:00)
[2023-09-03 06:21] LABS: Bacteria Many /hpf; Squamous Epithelial Cells Few /hpf (Few); White Blood Cells, Urine TNTC /hpf (0-5)
--- NOTE | 2023-09-03 06:37 | NUR ---
END OF SHIFT NOTE. BP HAVE BEEN ALL OVER THE PLACE THIS SHIFT, MOST OF THE SHIFT HER SBPs WERE IN THE 80s. EARLY THIS MORNING, STAFF WAS ONLY ABLE TO GET A MANUAL BP VIA DOPPLER. 250mL IVF BOLUS WAS GIVEN WITH SOME EFFECT. MOST RECENT BPs HAVE BEEN ELEVATED SBP 130s. REPEAT LACTIC PENDING. UA ALSO PENDING AFTER A VERY DIFFICULT STRAIGHT CATH AT 0500. URINE WITH STRONG ODOR AND LARGE AMOUNT OF SEDIMENT. CHEEKS OF FACE HAVE BEEN PINK/JAYCE OVERNIGHT, AFEBRILE. MORNING GLUCOSE 68. ORDERS GIVEN FOR CHANGE OF IVF. CURRENT ORDER IS FOR ONLY 1 BAG. PT IS CURRENTLY NPO UNTIL ST EVAL. PT TIMES PT IS ABLE TO APPROPIATELY RESPOND WITH YES/NO QUESTIONS BUT HAS MOSTLY BEEN NON VERBAL OVERNIGHT. CALL LIGHT IS WITHIN REACH, PT HAS YET TO USE IT. BED ALARM IS ACTIVE, ROUNDING FREQUENTLY.
[2023-09-03] MEDS ORDERED: NS 1,000 ML IV ONE (07:55)
[2023-09-03] MEDS ORDERED: Aspirin 300 MG Supp PR SCH (09:00)
[2023-09-03] MEDS ORDERED: Cranberry Extract 250MG W/30 MG Vitamin C Tab PO SCH (09:00)
[2023-09-03] MEDS ORDERED: Polyethylene Glycol 3350 17 gm PO SCH (09:00)
[2023-09-03] MEDS ORDERED: Aspirin 81 MG TabEC PO SCH (09:00)
[2023-09-03] MEDS ORDERED: Venlafaxine HCl 37.5 MG CapCR PO SCH (09:00)
--- NOTE | 2023-09-03 11:33 | NUR ---
AM NOTE: PATIENT LAYING IN BED THIS MORNING SLEEPING WITH MOUTH OPEN AND AUDIBLE SNORE. THIS RN ABLE TO WAKE PATIENT WITH VOICE AND TOUCH. PATIENT BRIEFLY OPENS EYES AND GOES BACK TO SLEEP. MORE ALERT WITH TURNING AND AFTERNOON CARES. PERRLA, GLASSES AT BEDSIDE. RIGHT SIDE FACIAL DROOP NOTED IN MOUTH. RIGHT UPPER EXTREMITY EDEMATOUS AND FLACCID, ELEVATING ON PILLOWS. BLE MOORE ROM AND FLACCID WITH BILATERAL FOOT DROP. PATIENT MOVING LEFT ARM UP TO FACE TO SCRATCH AND HAS TREMOR IN LEFT UPPER EXTREMITY. Q2 TURNING AND NEEDED. TELE SHOWING AFIB WITH HR 70'S. SBP 70-100'S. MAP RANGING FROM MID 50'S-90'S. BP STABLE AT THIS TIME WITH SBP 100'S. PATIENT DOES NOT APPEAR TO BE IN ANY CARDIAC DISTRESS OR PAIN. BLOOD PRESSURES TAKEN ON BILATERAL WRISTS AND UPPER ARMS TO COMPARE READINGS. EDEMA NOTED IN BLE AND RUE. DR. HAYES CALLED THIS AM TO NOTIFY OF BLOOD PRESSURE TRENDS, LACTIC RESULTS AND PATIENT PRESENTATION OVERALL. ORDERS FOR 1L NS BOLUS, INFUSED. D5 1/2NS INFUSING PER EMAR WELL. IV ZOSYN INFUSED THIS AM PER EMAR. ON ROOM AIR SATING MID 90'S. EVEN AND UNLABORED RESPIRATIONS. COARSE UPPER LUNG SOUNDS WITH DIMINISHED BASES. RESPIRATORY IN TO GIVE BREATHING TREATMENTS. OCCASIONAL MOIST SOUNDING COUGH. SUCTION AT BEDSIDE. EVEN AND UNLABORED BREATHING. BOWEL TONES PRESENT IN ALL QUADRANTS. NPO AT THIS TIME WITH SPEECH THERAPY CONSULT IN PLACE. Q4 ORAL CARE AND NEEDED WITH SUCTION. Q4 BLOOD SUGARS ATTENDS IN PLACE. SMALL LIGHT BROWN BOWEL MOVMENT THIS AM. BLADDER SCANNING NEEDED. PATIENT RETAINING URINE. STRAIGHT CATH X1 PER NOC SHIFT. SKIN OVERALL PALE, WITH SCATTERED BRUISING TO ARMS FROM LAB DRAWS AND IV INSERTION. REDNESS TO BOTTOM, SEE CHART PHOTO. CHEEKS MORE RED/LUZ COMPARED TO PRIOR SHIFT. DAUGHTER ISRAEL AT BEDSIDE AND UPDATED ON PLAN OF CARE BY THIS RN AND DR. HAYES. ISRAEL IS POA AND PAPERWORK FOR POA PLACED IN CHART. DR. HAYES CALLED AGAIN BY THIS RN TO DISCUSS CONTINUAL SOFT BLOOD PRESSURES WELL POSITIVE BLOOD CULTURE RESULTS. ORDERS TO INCREASE IV FLUIDS TO 150ML/HR AND ORDER PHARMACY VANCO CONSULT WITH DOSE NOW. ORDERS IN PLACE. FLUIDS INCREASED TO 150ML/HR AND VANCOMYCIN INFUSING AT THIS TIME. REFLUX LACTIC RESULTS TRENDING DOWN.
--- NOTE | 2023-09-03 12:12 | NUR ---
PATIENT HAS NOT CREATED ANY URINE. ATTENDS CHECK AND REMAINS DRY. BLADDER SCAN DONE SHOWING A MAX OF 72 ML. VANCO CONTINUES TO INFUSE WELL IV FLUIDS. AFTERNOON BLOOD SUGAR 103. RESPIRATORY IN TO GIVE BREATHING TREATMENT. DAUGHTER ISRAEL REMAINS AT BEDSIDE. PATIENT CONTINUES TO SLEEP, WAKING TO CARES AND TOUCH.
--- NOTE | 2023-09-03 13:08 | NUR ---
PATIENT TO HEAD MRI AT THIS TIME
--- NOTE | 2023-09-03 14:39 | NUR ---
CAGE FIGHTER IN ROOM AT THIS TIME.
--- NOTE | 2023-09-03 15:49 | NUR ---
ULTRASOUND COMPLETE SHOWING 36 ML IN BLADDER. PATIENT HAD VERY SMALL UNMEASURED VOID IN ATTENDS. PATIENT WAKING UP MORE WITH RECENT TURNING AND ORAL CARE. TELE REMAINS AFIB WITH HR 70-80'S. SBP 90-100'S. IV FLUIDS CONTINUE TO INFUSE. REMAINS ON ROOM AIR. DAUGHTER ISRAEL AT BEDSIDE. DNR BAND PLACED ON LEFT WRIST.
[2023-09-03] MEDS ORDERED: Rivaroxaban 10 MG Tab PO SCH (17:00)
--- NOTE | 2023-09-03 18:18 | NUR ---
PATIENT SBP RUNNING 80'S. CURRENT BP 82/67 (74). DR. HAYES CALLED TO UPDATED. DR. HAYES WOULD LIKE TO KEEP MAP ABOVE 65 AND DOES NTO WANT ANY CHANGES TO FLUIDS OR OTHER ORDERS. REMAINS AFIB WIHT HR 60-70'S. FLUIDS INFUSING PER EMAR. REMAINS ON ROOM AIR. SUCTIONING NEEDED. Q2 TURNING AND ORAL CARE. BLOOD SUGARS STABLE THROUGHOUT SHIFT. POLST UPDATED WITH PALLIATIVE CARE. DAUGHTER AT BEDSIDE THROUGHOUT SHIFT. BED BATH GIVEN TODAY.
[2023-09-04] VITALS (15 sets, daily range): BP systolic 81–109; BP diastolic 58–81
[2023-09-04 05:01] LABS: BASOPHILS ABSOLUTE AUTO 0.07 K/mm3 (0.00-0.23); BASOPHILS PERCENT AUTO 1 % (0-2); EOSINOPHILS ABSOLUTE AUTO 0.34 K/mm3 (0.00-0.68); EOSINOPHILS PERCENT AUTO 3 % (0-6); Hematocrit 43.3 % (33.0-51.0); Hemoglobin 13.8 g/dL (11.5-16.0); IMMATURE GRAN ABSOLUTE AUTO 0.08 K/mm3 (0.00-0.10); IMMATURE GRAN PERCENT AUTO 1 % (0-1); LYMPHOCYTES ABSOLUTE AUTO 0.62 K/mm3 (0.84-5.20); LYMPHOCYTES PERCENT AUTO 6 % (21-46); MONOCYTES ABSOLUTE AUTO 1.32 K/mm3 (0.16-1.47); MONOCYTES PERCENT AUTO 12 % (4-13); Mean Corpuscular HGB 31.7 pg (26.0-34.0); Mean Corpuscular HGB Conc 31.9 g/dL (31.5-36.5); Mean Corpuscular Volume 100 fL (80-100); Mean Platelet Volume 12.4 fL (9.1-12.4); NEUTROPHILS ABSOLUTE AUTO 8.27 K/mm3 (1.96-9.15); NEUTROPHILS PERCENT AUTO 77 % (41-73); Platelet Count 168 K/mm3 (150-400); RDW Coefficient Variation 16.9 % (11.7-14.2); RDW Standard Deviation 61.8 fL (35.1-46.3); Red Blood Cell Count 4.35 M/mm3 (3.80-5.20)
[2023-09-04 05:27] LABS: Alanine Aminotransfer (ALT/SGP 125 U/L (12-78); Albumin, Blood 1.8 g/dL (3.4-5.0); Albumin/Globulin Ratio 0.4 (0.8-1.8); Alk Phos 219 U/L (50-136); Anion Gap 4 mmol/L (6-16); Aspartate Aminotrans (AST/SGOT 121 U/L (12-37); Bilirubin, Total 0.6 mg/dL (0.1-1.0); Blood Urea Nitrogen 54 mg/dL (8-24); Bun/Creatinine Ratio 19.9 (12.0-20.0); CO2, Blood 20 mmol/L (21-32); Calcium, Blood 8.4 mg/dL (8.5-10.1); Chloride, Blood 114 mmol/L (98-108); Creatinine, Blood 2.71 mg/dL (0.40-1.00); Glomerular Filtration Rate 17 (60-); Glucose, Blood 103 mg/dL (70-99); Potassium, Blood 4.7 mmol/L (3.5-5.5); Sodium, Blood 138 mmol/L (136-145); Total Protein, Blood 5.8 g/dL (6.4-8.2); Vancomycin, Random 22.5 ug/mL
[2023-09-04] MEDS ORDERED: Dose Adjust by Pharmacy XX STA (06:52)
--- NOTE | 2023-09-04 07:31 | NUR ---
SHIFT SUMMARY RESPONDS TO BOTH VERBAL AND TACTILE STIMULI. INTERMITTENTLY CAN ANSWERS "YES" OR "NO" TO QUESTIONS, BUT REMAINS NON-VERBAL MOST OF THE NIGHT. VERY WEAK MOVEMENTS WITH INTERMITTENT TREMORS NOTE. RIGHT SIDED FACIAL DROOP WITH DEFICITS NOTED. VERY LETHARGIC T/O MOST OF THE NIGHT, BUT WOULD EASILY AWAKE UP TO STIMULI. CARDIAC, REMAINS IN AFIB 70-90'S. SBP WAS INITIALLY SOFT RANGING 80'S, BUT GRADUALLY IMPROVED TO THE 90-100'S. RESPIRATORY, MAINTAINS SPO2 >90% ON RA. INTERMITTENT MOIST, BUT NON-PRODUCTIVE COUGH NOTE. GI/, CONTINUES TO BE INCONTINENT OF URINE. ATTENDS IN PLACE AND CHANGE PRN TO KEEP C/D/I. NO BM THIS SHIFT. Q2HR REPOSITIONING PERFORMED ORDERED. PENDING SPEECH EVAL THIS AM. NO NEW ORDERS AT THIS TIME, WILL REPORT TO ONCOMING RN. CY VALDIVIA OF THIS NOTE
--- NOTE | 2023-09-04 11:09 | NUR ---
Pt somulent and sleeping some labored respirations. Review of pt with daughter we discussed prognosis and future care needs. Carefull review of code status and prognosis. We completed a polst and did DNR status. Daughter stated that is she declines further they will look at starting hospice. Advised we can help with decision. We discussed comfort and dignity if she gets to symptomatic. Reenforced that we do not desciminate by and and DNR status does not delay regular medical care.
--- NOTE | 2023-09-04 11:46 | NUR ---
VTE PROPHYLAXIS DR. HAYES CALLED AND NOTIFIED NO VTE PROPHYLAXIS ORDERED. NO ORDERS GIVEN AT THIS TIME.
--- NOTE | 2023-09-04 16:57 | NUR ---
SHIFT SUMMARY PT ALERT AT TIMES T/O THE DAY BUT SLEPT MAJORITY OF SHIFT. PT AWAKENS TO VERBAL STIMULI. PT NON VERBAL BUT CAN ANSWER SOME YES/NO QUESTIONS. PT SMILES AT FAMILY WHEN IN ROOM. TELE 70-80S AFIB. SPO2>92% ON RA, BREATHING EVEN AND UNLABORED. NADN. Q2 TURNSAND NUERO CHECKS T/O SHIFT AND FREQUENT ATTEND CHANGE NEEDED. SPEECH THERAPIST AT BEDSIDE FOR EVAL SEE NOTE. PT CONTINUED ON NPO PER SWALLOW EVAL. FAMILY AT BEDSIDE T/O DAY. EDEMATOUS EXTREMETIES FLOATED AT LEVEL OF HEART. DRESSING CHANGED ON COCCYX. NO ACUTE CHANGES.
[2023-09-05] VITALS (8 sets, daily range): BP systolic 85–137; BP diastolic 60–76
--- NOTE | 2023-09-05 05:58 | NUR ---
SHIFT SUMMARY MUCH MORE ALERT THIS SHIFT, EASILY AROUSABLE TO BOTH VERBAL AND TACTILE STIMULI. INTERMITTENTLY CAN ANSWER "YES" OR "NO" TO QUESTIONS, BUT REMAINS MOSTLY NON-VERBAL. INTERMITTENT TREMORS NOTED DURING THE NIGHT. RIGHT SIDED FACIAL DROOP WITH DEFICITS WELL. CARDIAC, REMAINS IN AFIB 80-90'S. SBP CONTINUES TO BE SOFT RANGING 80-90'S T/O THE NIGHT. MAP CONSISTENTLY >65 HOWEVER. RESPIRATORY, MAINTAINS SPO2 >90% ON RA. INTERMITTENT MOIST, BUT NON-PRODUCTIVE COUGH NOTED. GI/, CONTINUES TO BE INCONTINENT OF URINE. ATTENDS IN PLACE AND CHANGE PRN TO KEEP C/D/I. NO BM THIS SHIFT. Q2HR REPOSITIONING PERFORMED ORDERED WELL Q4HR ORAL CARE. FAILED SPEECH EVAL 09/04/23 PER DAYSHIFT REPORT. POTENTIAL REEVALUATION IN THE AM. NO NEW ORDERS AT THIS TIME, WILL REPORT TO ONCOMING RN. CY VALDIVIA OF THIS NOTE
[2023-09-05 06:17] LABS: Albumin, Blood 1.7 g/dL (3.4-5.0); Albumin/Globulin Ratio 0.4 (0.8-1.8); Bilirubin, Total 0.8 mg/dL (0.1-1.0); Bun/Creatinine Ratio 19.6 (12.0-20.0); Calcium, Blood 8.6 mg/dL (8.5-10.1); Creatinine, Blood 2.55 mg/dL (0.40-1.00); Potassium, Blood 4.3 mmol/L (3.5-5.5); Total Protein, Blood 5.7 g/dL (6.4-8.2)
[2023-09-05] MEDS ORDERED: NS 250 ML IV PRN (16:15)
--- NOTE | 2023-09-05 17:47 | NUR ---
ASSUMED CARE OF PT AT 0700 THIS AM. NO ACUTE CHANGES NOTED T/O THE SHIFT. DTR AND GRND DTR AT BEDSIDE T/O THE DAY, UPDATED ON PT'S CONDITION. THEY STATE THAT THE PT IS MORE ALERT AND INTERACTIVE THAN SHE WAS YESTERDAY. PT IS SLOW TO RESPOND BUT CAN ANSWER YES/NO QUESTIONS. DR ANAND IN THIS EVENING TO EVALUATE PT AND SPOKE WITH FAMILY AT BEDSIDE. SEE VS AND ASSESSMENT DOCUMENTATION. FREQUENT ROUNDING, TURN Q 2, PT IS UNABLE TO USE CALL LIGHT FOR NEEDS. WILL CONTINUE TO MONITOR AND GIVE REPORT TO NOC SHIFT RN.
[2023-09-06] VITALS (7 sets, daily range): BP systolic 93–128; BP diastolic 65–116
[2023-09-06 03:58] LABS: BASOPHILS ABSOLUTE AUTO 0.06 K/mm3 (0.00-0.23); BASOPHILS PERCENT AUTO 1 % (0-2); EOSINOPHILS PERCENT AUTO 3 % (0-6); Hematocrit 42.8 % (33.0-51.0); Hemoglobin 13.8 g/dL (11.5-16.0); IMMATURE GRAN ABSOLUTE AUTO 0.14 K/mm3 (0.00-0.10); IMMATURE GRAN PERCENT AUTO 2 % (0-1); LYMPHOCYTES PERCENT AUTO 7 % (21-46); MONOCYTES ABSOLUTE AUTO 1.27 K/mm3 (0.16-1.47); MONOCYTES PERCENT AUTO 13 % (4-13); Mean Corpuscular HGB 32.2 pg (26.0-34.0); Mean Corpuscular HGB Conc 32.2 g/dL (31.5-36.5); Mean Corpuscular Volume 100 fL (80-100); NEUTROPHILS ABSOLUTE AUTO 7.14 K/mm3 (1.96-9.15); NEUTROPHILS PERCENT AUTO 74 % (41-73); NRBC ABSOLUTE 0.05 K/mm3 (0.00-0.02); NRBC Auto 0.5 /100 WBC (0.0-0.2); Platelet Count 203 K/mm3 (150-400); RDW Coefficient Variation 17.2 % (11.7-14.2); RDW Standard Deviation 63.7 fL (35.1-46.3); Red Blood Cell Count 4.28 M/mm3 (3.80-5.20); White Blood Cell Count 9.61 K/mm3 (4.00-11.30)
[2023-09-06 04:19] LABS: Albumin, Blood 1.8 g/dL (3.4-5.0); Albumin/Globulin Ratio 0.4 (0.8-1.8); Bilirubin, Total 0.7 mg/dL (0.1-1.0); Bun/Creatinine Ratio 20.8 (12.0-20.0); Calcium, Blood 8.6 mg/dL (8.5-10.1); Creatinine, Blood 2.55 mg/dL (0.40-1.00); Globulin, Blood 4.2 g/dL (2.2-4.0); Potassium, Blood 4.3 mmol/L (3.5-5.5)
--- NOTE | 2023-09-06 05:15 | NUR ---
SHIFT SUMMARY EASILY AROUSABLE TO BOTH VERBAL AND TACTILE STIMULI. INTERMITTENTLY CAN ANSWER "YES" OR "NO" TO QUESTIONS, BUT REMAINS MOSTLY NON-VERBAL. INTERMITTENT TREMORS ON LEFT SIDE OF PT S BODY NOTED DURING THE NIGHT. CARDIAC, REMAINS IN AFIB 80-90'S. SBP HAS IMPROVED FROM PREVIOUS NOC SHIFT, BUT CONTINUES TO BE SOFT RANGING 80-100'S MAP CONSISTENTLY >65. RESPIRATORY, MAINTAINS SPO2 >90% ON RA. INTERMITTENT MOIST, BUT NON-PRODUCTIVE COUGH NOTED. GI/, CONTINUES TO BE INCONTINENT OF URINE. ATTENDS IN PLACE AND CHANGE PRN TO KEEP C/D/I. NO BM THIS SHIFT. Q2HR REPOSITIONING PERFORMED ORDERED WELL Q4HR ORAL CARE. PT CHANGED TO MEDICAL STATUS PER MD. NO NEW ORDERS AT THIS TIME, WILL REPORT TO ONCOMING RN. CY VALDIVIA OF THIS NOTE
--- NOTE | 2023-09-06 07:41 | NUR ---
NURSING PCU DAYSHIFT: Assumed care of pt at approx 0700. Alert, oriented to self, able to answer basic yes/no questions, speech mumbled. 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 Skin pale/fragile, scattered bruising, no breakdown noted, mepilex in place on coccyx. Tele in place, afib w/HR 90's, denies CP, SBP 97 prior to a.m. meds, 1+ BLE edema, dependent edema elsewhere, pulses palp. L/S w/crackles t/o, upper airway wheezes, respirations shallow, occ weak cough, O2 sat mid 90's on RA. Abd mildly distended, BT hypoactive, incontinent of urine/stool, attends in place. PIV to LH s/l, PG to BONNY w/NS TKO. No s/s of acute distress this a.m. Repositioned, oral care completed by PCT, attends changed, a.m. care completed. Call light on bed so pt is able to listen to TV, frequent rounding required d/t inability to use call system. Remains NPO, plan for re-evaluation by ST today. Awaiting rounding from PMD, cont to monitor for changes.
--- NOTE | 2023-09-06 17:04 | NUR ---
DISCUSSED CASE WITH PROVIDER, AND BEDSIDE RN. MET WITH ALONZO AND HER GRANDSON. HER DAUGHTER HAD RECENTLY LEFT TO GO GET SOMETHING TO EAT. WE DISCUSSED THE RESULTS OF THE SWALLOW EVALUATION AND THE POSIBILITY OF NEEDING TO PLACE A TUBE FOR ARTIFICIAL NUTRITION. ALONZO DID STATED THAT SHE DID NOT WANT TO HAVE A TUBE PLACED. DISCUSSED THIS WITH THE GRANDSON, AND WE WILL SPEAK AGAIN IN THE MORNING WHEN THE REST OF THE FAMILY IS PRESENT.
--- NOTE | 2023-09-06 17:08 | NUR ---
NURSING PCU DAYSHIFT SUMMARY: Pt has rested comfortably t/o the shift. Family at bedside majority of day, plan of care discussed. SBP improved from prior shifts, IV metoprolol administered as ordered. ST at bedside for eval, see assessment for results, pt remains NPO. Dental hygienest at bedside for tx, remainder of oral cast removed, continued Q4 oral care maintained t/o shift. Bedbath/linen change completed, q2 repositioning to promote skin health and prevent breakdown. Pt/family deny any current needs, cont to monitor until rpt is provided to NOC RN.
[2023-09-07] VITALS (7 sets, daily range): BP systolic 86–148; BP diastolic 63–90
--- NOTE | 2023-09-07 06:30 | NUR ---
SHIFT SUMMARY PATIENT OPENING EYES TO VOICE AND TOUCH. SHE HAS BEEN NONVERBAL OVERNIGHT WITH OCCASIONAL ATTEMPTS TO SPEAK. PATIENT IS FLACID ON HER RIGHT SIDE WITH RIGHT FACIAL DROOP. LEFT SIDE PROFOUNDLY WEAK. SHE IS ON ROOM AIR WITH NO SIGNS OF RESPIRATORY DISTRESS, SPO2 HIGH 90'S. VITAL SIGNS STABLE, RATE CONTROLLED AFIB ON TELE. WILL CONTINUE TO MONITOR. CALL LIGHT WITHIN REACH.
--- NOTE | 2023-09-07 17:04 | NUR ---
END OF SHIFT PT MEDICAL W/ TELEMETRY STATUS. ALERT BUT UNABLE TO COMMUNICATE NEEDS. PT NOT ANSWERING Y/N Qs THIS AM, BUT THEN MUMBLING "NO" A FEW TIMES TODAY. PT UNABLE TO ASSIST W/ REPOSITIONING, REQUIRING 2 PERSON MAX ASSIST FOR CARE. PT INCONTINENT, WEARING ATTENDS. PT FAMILY AT BEDSIDE. PT REMAINS NPO AFTER FAILED SWALLOW EVAL THIS AM. PT FAMILY STATING WILL FURTHER MAKE DECISION FOR PT PLAN OF CARE TOMORROW.
--- NOTE | 2023-09-07 20:30 | NUR ---
PHYSICIAN COMMUNICATION CONTACTED DR PORTER TO NOTIFY HIM THAT UPON ASSESSING THE PATIENT THIS RN NOTICED THAT THE PATIENT'S RIGHT HAND WAS COLD TO THE TOUCH, PURPLISH IN COLOR, AND SWOLLEN WITH NO CAP REFILL. DR PORTER ORDERED A VENOUS DUPLEX STUDY OF THE ARM TO CHECK FOR ISCHEMIA TO THE HAND.
[2023-09-08] VITALS (7 sets, daily range): BP systolic 83–137; BP diastolic 59–87
[2023-09-08 03:56] LABS: BASOPHILS ABSOLUTE AUTO 0.05 K/mm3 (0.00-0.23); BASOPHILS PERCENT AUTO 1 % (0-2); EOSINOPHILS ABSOLUTE AUTO 0.19 K/mm3 (0.00-0.68); EOSINOPHILS PERCENT AUTO 2 % (0-6); Hematocrit 42.3 % (33.0-51.0); Hemoglobin 13.5 g/dL (11.5-16.0); IMMATURE GRAN ABSOLUTE AUTO 0.16 K/mm3 (0.00-0.10); IMMATURE GRAN PERCENT AUTO 2 % (0-1); LYMPHOCYTES ABSOLUTE AUTO 0.74 K/mm3 (0.84-5.20); LYMPHOCYTES PERCENT AUTO 8 % (21-46); MONOCYTES ABSOLUTE AUTO 0.95 K/mm3 (0.16-1.47); MONOCYTES PERCENT AUTO 10 % (4-13); Mean Corpuscular HGB 31.5 pg (26.0-34.0); Mean Corpuscular HGB Conc 31.9 g/dL (31.5-36.5); Mean Corpuscular Volume 99 fL (80-100); Mean Platelet Volume 11.4 fL (9.1-12.4); NEUTROPHILS ABSOLUTE AUTO 7.59 K/mm3 (1.96-9.15); NEUTROPHILS PERCENT AUTO 78 % (41-73); NRBC ABSOLUTE 0.08 K/mm3 (0.00-0.02); NRBC Auto 0.8 /100 WBC (0.0-0.2); Platelet Count 237 K/mm3 (150-400); RDW Coefficient Variation 17.6 % (11.7-14.2); Red Blood Cell Count 4.29 M/mm3 (3.80-5.20); White Blood Cell Count 9.68 K/mm3 (4.00-11.30)
[2023-09-08 04:22] LABS: Albumin, Blood 1.7 g/dL (3.4-5.0); Anion Gap 5 mmol/L (6-16); Blood Urea Nitrogen 59 mg/dL (8-24); Bun/Creatinine Ratio 21.8 (12.0-20.0); CO2, Blood 19 mmol/L (21-32); Calcium, Blood 8.6 mg/dL (8.5-10.1); Chloride, Blood 125 mmol/L (98-108); Creatinine, Blood 2.71 mg/dL (0.40-1.00); Glomerular Filtration Rate 17 (60-); Glucose, Blood 87 mg/dL (70-99); Phosphorus, Blood 3.4 mg/dL (2.5-4.9); Sodium, Blood 149 mmol/L (136-145)
--- NOTE | 2023-09-08 06:35 | NUR ---
SHIFT SUMMARY PATIENT MORE ALERT OVERNIGHT, CLEARLY SAYING YES OR NO TO SIMPLE QUESTIONS. PATIENT DENIES HAVING ANY PAIN OR SHORTNESS OF BREATH. SHE IS ON ROOM AIR. BLOOD PRESSURE HYPOTENSIVE AT TIMES BUT MAP IS >65. RATE CONTROLLED AFIB ON TELE. NO ACUTE ISSUES NOTED OVERNIGHT. WILL CONTINUE TO MONITOR. CALL LIGHT WITHIN REACH.
[2023-09-08] MEDS ORDERED: Piperacillin/Tazobactam Sod 3.375 GM in NS 50 ML IV SCH (09:00)
[2023-09-08] MEDS ORDERED: LEVSOD150 PO (14:28)
[2023-09-08] MEDS ORDERED: XARELTO20 MG PO (14:29)
[2023-09-08] MEDS ORDERED: CRANBERRY125 MG PO (14:30)
[2023-09-08] MEDS ORDERED: ATOR40TA PO (14:31)
--- NOTE | 2023-09-08 15:20 | NUR ---
Met with pt's daughter Priya today to discuss pt's plan of care. Priya has been hesitant to discuss hospice, but was willing today. She states she assumed her mom's choking on food and fluids would resolve on its own, but now realizes that may not be the case. She asked many questions about hospice, and stated she felt "much better" about it now. She is now agreeable for pt to return home with hospice. She chose [facility] hospice, and given the patient choice letter. Plan for patient to discharge home tomorrow, with [facility] to follow. The patient does not need a same day admission.
--- NOTE | 2023-09-08 18:12 | NUR ---
END OF SHIFT PT MEDICAL W/ TELEMETRY STATUS. ALERT, ANSWERING SOME Y/N Qs AT TIMES. Q2H REPOSITIONING W/ 2 PERSON MAX ASSIST FOR CARE. PT NPO. SWALLOW EVAL FAILED AGAIN THIS SHIFT. PT INCONTINENT, WEARING ATTENDS. PT FAMILY AT BEDSIDE, DESIRING FOR PT DISCHARGE HOME W/ HOSPICE
[2023-09-09 01:02] VITALS: BP 100/76
[2023-09-09 04:13] VITALS: BP 112/73
--- NOTE | 2023-09-09 05:58 | NUR ---
SHIFT SUMMARY PT ALERT, ORIENTATION UNABLE TO BE DETERMINED D/T PT BEING NON-VERBAL AT BASELINE. PT DOES MAKE EYE CONTACT, TRACKS WHEN STAFF IN THE ROOM. PT ABLE TO FOLLOW SOME COMMANDS BUT NOT CONSISTENTLY. PT OCCASSIONALLY ABLE TO MAKE OUT A "YES OR NO". PT DOES GROAN AND MOAN DURING PT CARE. VSS T/O SHIFT; SBP 100'S WITH MAPS >65, AFEBRILE, REMAINS IN AFIB WITH RATE IN 80'S. PT ON RA, SPO2 >95%. NO RESPIRATORY DISTRESS NOTED. ORAL CARE COMPLETED PT COULD TOLERATE; SEEMS THAT THE PT'S MOUTH IS VERY TENDER AND SORE, TONGUE IS DRY AND FISSURED APPEARANCE. PT ABLE TO COUGH AND CLEAR THROAT OCCASSIONALLY, BUT COUGH IS WEAK. PT REPOSITIONED Q2 OR NEEDED. MEPILEX IN PLACE ON COCCYX; C/D/I. CALL LIGHT IN REACH, BUT PT HAS NOT USED YET - FREQUENT ROUNDING AND CHECKS. WILL UPDATE ONCOMING RN. OF NOTE; THIS RN CHECKED PUREWICK SYSTEM AT 0400 AND MINIMAL URINE OUTPUT. THIS RN BLADDER SCANNED PT; SHOWED >400. THIS RN NOTIFIED HOSPITALIST. ORDERS TO PLACE VASQUEZ CATHETER PT IS TO DISCHARGE ON HOSPICE. VASQUEZ PLACE, PT TOLERATED FAIRLY; APPROX 500 MLS OUT.
[2023-09-09 06:12] VITALS: BP 95/77
[2023-09-09 08:21] VITALS: BP 107/74
[2023-09-09] MEDS ORDERED: LORA.5 PO (11:15)
[2023-09-09] MEDS ORDERED: MORP20L SL (11:17)
--- NOTE | 2023-09-09 12:44 | NUR ---
DISCHARGE PT MEDICAL NO TELEMETRY STATUS. PT ALERT. ORIENTATION UNASSESSABLE D/T PT INABILITY TO SPEAK CLEARLY. PT MUMBLING INCOMPREHENSIBLY & CHUCKLING AT TIMES. VSS. SPO2 > 92% ON RA. PT DISCHARGE BACK HOME TO [facility], TAKEN BY NORAH Mata/ EMS @ THIS TIME. PIVs & VASQUEZ CATH DCd. VASQUEZ W/ ONLY APPROX 200 MLS OUTPUT THIS SHIFT. PT DCd ON HOSPICE.
== END 2023-09-09 12:48 | disposition hospice, home (50) | DRG 177 ==
LOC: ER 09:47 → PCU 12:38 → MEDS 12:38 → PCU 17:08
PROVIDERS: Emergency Medicine; Internal Medicine; ADMIT Internal Medicine
DX: J69.0 Pneumonitis due to inhalation of food and vomit (principal); G92.8 Other toxic encephalopathy; N39.0 Urinary tract infection, site not specified; I48.21 Permanent atrial fibrillation; N17.9 Acute kidney failure, unspecified; F02.83 Dementia in other diseases classified elsewhere, unspecified severity, with mood disturbance; Z51.5 Encounter for palliative care; Z66 Do not resuscitate; F02.84 Dementia in other diseases classified elsewhere, unspecified severity, with anxiety; E87.1 Hypo-osmolality and hyponatremia; E87.20 Acidosis, unspecified; G30.9 Alzheimer's disease, unspecified; N18.30 Chronic kidney disease, stage 3 unspecified; I12.9 Hypertensive chronic kidney disease with stage 1 through stage 4 chronic kidney disease, or unspecified chronic kidney disease; E78.5 Hyperlipidemia, unspecified; K21.9 Gastro-esophageal reflux disease without esophagitis; E03.9 Hypothyroidism, unspecified; E87.5 Hyperkalemia; I73.9 Peripheral vascular disease, unspecified; G89.29 Other chronic pain; E86.0 Dehydration; R13.10 Dysphagia, unspecified; R74.01 Elevation of levels of liver transaminase levels; B96.20 Unspecified Escherichia coli [E. coli] as the cause of diseases classified elsewhere; I95.9 Hypotension, unspecified; Z96.651 Presence of right artificial knee joint; Z86.73 Personal history of transient ischemic attack (TIA), and cerebral infarction without residual deficits; Z79.01 Long term (current) use of anticoagulants; Z79.82 Long term (current) use of aspirin; Z79.890 Hormone replacement therapy
CPT/HCPCS: 31720; 36415; 70450; 71045; 76700; 76857; 80048; 80053; 80069; 80202; 81001; 82947; 83605; 83735; 83880; 84100; 85025; 85027; 87040; 87077; 87086; 87186; 92526; 92610; 93931; 94640; 94664; 94760; 94762; 96361; 96365; 96366; 96375; 97161; 99285-25; A9270; C9113; J0456; J2543; J3370; J7030; J7042; J7050